=== PATIENT | male | born 1955 | race Hispanic/Latino ===

== ENCOUNTER 2020-12-05 13:28 | Emergency (ER) | payer OTHER ==
--- OUTSIDE RECORDS SUMMARY | 2020-12-05 13:31 | XMS REPORT | Continuity of Care Document ---
:1955 Author Organization [facility] t Address [address] [place] [address] Dr. [address] [place] [address] Care Team Providers Name Role Phone Only, Test Attending Clinician Unavailable Christine SIMON Attending Clinician Unavailable Problems This patient has no known problems. Allergies, Adverse Reactions, Alerts This patient has no known allergies or adverse reactions. Medications This patient has no known medications. Procedures This patient has no known procedures. Encounters Start End Encounter Admission Attending Care Care Encounter Source Date/Time Date/Time Type Type Clinicians Facility Department ID 2020-09-22 2020-09-22 Laboratory Only, [facility] [id number] 13:22:29 13:37:29 Only Test [place] [id number] [place] [id number] [place] [id number] 2020-03-17 2020-03-17 Outpatient ALFRED KANNAN [facility] [id number] Access 00:00:00 00:00:00 [facility] Results This patient has no known results.
[2020-12-05] MEDS ORDERED: HYDROCODONE/APAP 10/325 TAB ONE ×2 (14:05→14:09)
--- NOTE | 2020-12-05 14:45 | RAD REPORT ---
EXAM DESCRIPTION: CT - Thorax Wo Con - 12/05/2020 2:19 pm CLINICAL HISTORY: PAIN COMPARISON: No comparisons TECHNIQUE: Axial 5 mm thick images of the chest were obtained without IV contrast. All CT scans are performed using dose optimization technique as appropriate and may include automated exposure control or mA/KV adjustment according to patient size. FINDINGS: No mass or infiltrate in the lung parenchyma. No pleural thickening or pleural effusion. N o pneumothorax. No abnormal mediastinal or hilar masses or lymphadenopathy seen. No gross aortic or pulmonary artery finding suspected. Assessment is limited in the absence of IV contrast. No cardiomegaly or pericardi al effusion. No chest wall mass or abnormal axillary lymphadenopathy. The anterior aspect of the right seventh- ninth ribs are fractured near the costochondral junction. T his is the lateral aspect of the lower ribcage. Patient also has cortical buckling involving the thir d- sixth ribs very likely nondisplaced acute fractures as well. IMPRESSION: Definitive nondisplaced fractures of the lateral right seventh- ninth ribs near the cost ochondral junction. Patient very likely has buckle type or incomplete fractures of the anterior right third-sixth ribs. No pneumothorax, hemothorax, pulmonary contusion or other trauma related findings.
--- NOTE | 2020-12-05 15:09 | ER ---
Nurse's Notes [facility] Name: Bj Carpio Age: 65 yrs Sex: Male : 1955 Arrival Date: 12/05/2020 Time: 13:35 Bed 5 Private MD: Diagnosis: Fall on same level from slipping, tripping and stumbling;Multiple fractures of ribs, right side Presentation: 12/05 13:41 Chief complaint: Patient states: Trip and fall yesterday while hunting. R lateral rib ll1 cage pain since. Pain with deep breathing. No head injury or LOC. Coronavirus screen: Client denies travel out of the [place] in the last 14 days. At this time, the client does not indicate any symptoms associated with coronavirus-19. Ebola Screen: Patient denies travel to an Ebola-affected area in the 21 days before illness onset. Initial Sepsis Screen: Does the patient meet any 2 criteria? No. Patient's initial sepsis screen is negative. Does the patient have a suspected source of infection? Yes: Bone or joint infection. Risk Assessment: Do you want to hurt yourself or someone else? Patient reports no desire to harm self or others. Onset of symptoms was December 04, 2020. 13:41 Method Of Arrival: Ambulatory ll1 13:41 Acuity: MANUELA 4 ll1 Triage Assessment: 13:44 General: Appears uncomfortable, Behavior is calm, cooperative, appropriate for age. ll1 Pain: Complains of pain in R lateral rib cage Quality of pain is described as aching, Aggravated by increased activity. Neuro: No deficits noted. Cardiovascular: No deficits noted. Respiratory: Airway is patent Trachea midline Respiratory effort is even, unlabored, Respiratory pattern is regular, symmetrical, Breath sounds are clear bilaterally. Musculoskeletal: Circulation, motion, and sensation intact. Capillary refill < 3 seconds, Tenderness present in R lateral rib cage pain Reports pain in R lateral rib cage pain. Injury Description: fall. Historical: - Allergies: 13:39 No Known Allergies; ll1 - PMHx: 13:39 Hypertension; Diabetes - NIDDM; Diabetes - IDDM; High Cholesterol; ll1 - PSHx: 13:39 None; ll1 - Immunization history:: Flu vaccine is not up to date. - Social history:: Smoking status: Patient denies any tobacco usage or history of. Screenin:35 Abuse screen: Denies threats or abuse. Nutritional screening: No deficits noted. vg1 Tuberculosis screening: No symptoms or risk factors identified. Fall Risk Fall in past 12 months (25 points). No secondary diagnosis (0 pts). No IV (0 pts). Ambulatory Aid- None/Bed Rest/Nurse Assist (0 pts). Gait- Normal/Bed Rest/Wheelchair (0 pts) Mental Status- Oriented to own ability (0 pts). Total Domingo Fall Scale indicates Low Risk Score (25-44 pts). Fall prevention measures have been instituted. Side Rails Up X 2 Placed close to Nursing Station. Assessment: 14:33 General: Appears in no apparent distress. comfortable, Behavior is calm, cooperative. vg1 Pain: Complains of pain in Right lateral rib Pain currently is 9 out of 10 on a pain scale. Pain began 1 day ago. Alleviated by rest, Aggravated by deep breathing. Neuro: Level of Consciousness is awake, alert, obeys commands, Oriented to person, place, time, situation. Cardiovascular: Patient's skin is warm and dry. Respiratory: Reports shortness of breath pain with respiration Airway is patent Respiratory effort is even, unlabored, Respiratory pattern is regular, symmetrical, Breath sounds are clear bilaterally. GI: No signs and/or symptoms were reported involving the gastrointestinal system. : No signs and/or symptoms were reported regarding the genitourinary system. EENT: No signs and/or symptoms were reported regarding the EENT system. Derm: Skin is intact, is healthy with good turgor. Musculoskeletal: Circulation, motion, and sensation intact. Vital Signs: 13:41 BP 144 / 65; Pulse 89; Resp 17; Temp 97.6; Pulse Ox 98% ; Weight 113.4 kg; Height 6 ft. ll1 0 in. (182.88 cm); Pain 8/10; 14:34 BP 155 / 74; Pulse 80; Resp 18; Pulse Ox 99% on R/A; vg1 13:41 Body Mass Index 33.91 (113.40 kg, 182.88 cm) ll1 ED Course: 13:35 Patient arrived in ED. mr 13:38 Arm band placed on. ll1 13:42 Triage completed. ll1 13:46 [facility]-C [facility] kb 13:46 Alberto Spencer MD is Attending Physician. kb 14:21 CT Chest Wo Con In Process Unspecified. EDMS 14:26 Neris Wolf, RN is Primary Nurse. vg1 14:35 Patient has correct armband on for positive identification. Bed in low position. Call vg1 light in reach. Side rails up X2. 14:35 Patient maintains SpO2 saturation greater than 95% on room air. vg1 15:23 No provider procedures requiring assistance completed. Patient did not have IV access vg1 during this emergency room visit. Administered Medications: 13:52 Drug: [place] 10 mg-325 mg 1 tabs {Note: rass 0.} Route: PO; ll1 15:24 Follow up: Response: No adverse reaction; Pain is decreased vg1 Outcome: 15:09 Discharge ordered by . kb 15:24 Discharged to home ambulatory. vg1 15:24 Condition: stable 15:24 Discharge instructions given to patient, Instructed on discharge instructions, follow up and referral plans. medication usage, Demonstrated understanding of instructions, follow-up care, medications, Prescriptions given X 2. 15:24 Patient left the ED. vg1 Signatures: Dispatcher [employer] EDMS Maggie Potts, FACTORY MANAGER-C FACTORY MANAGER-Claudia Molly Clark Neris Wolf, RN RN vg1 Albert Kitchen, COREY RN ll1
--- NOTE | 2020-12-05 15:09 | EDPHYS ---
Physician Documentation [facility] Name: Bj Carpio Age: 65 yrs Sex: Male : 1955 Arrival Date: 12/05/2020 Time: 13:35 Bed 5 Private MD: ED Physician Alberto Spencer HPI: 12/05 15:07 This 65 yrs old Male presents to ER via Ambulatory with complaints of Fall kb Injury, Rib pain. 15:07 Details of fall: The patient fell from an upright position, while walking. The patient kb has not experienced similar symptoms in the past. The patient has not recently seen a physician. 15:08 Onset: The symptoms/episode began/occurred yesterday. Associated injuries: The patient kb sustained injury to the chest, specifically the right lateral anterior chest, pain with breathing, pain with movement, tenderness. Severity of symptoms: At their worst the symptoms were moderate, in the emergency department the symptoms are unchanged. Historical: - Allergies: 13:39 No Known Allergies; ll1 - PMHx: 13:39 Hypertension; Diabetes - NIDDM; Diabetes - IDDM; High Cholesterol; ll1 - PSHx: 13:39 None; ll1 - Immunization history:: Flu vaccine is not up to date. - Social history:: Smoking status: Patient denies any tobacco usage or history of. ROS: 15:07 Constitutional: Negative for fever, chills, and weight loss, Respiratory: Negative for kb shortness of breath, cough, wheezing, and pleuritic chest pain, Abdomen/GI: Negative for abdominal pain, nausea, vomiting, diarrhea, and constipation, MS/Extremity: Negative for injury and deformity, Skin: Negative for injury, rash, and discoloration, Neuro: Negative for headache, weakness, numbness, tingling, and seizure. 15:07 Cardiovascular: Positive for chest pain, with cough, with movement, of the right lateral anterior chest. Exam: 15:07 Constitutional: This is a well developed, well nourished patient who is awake, alert, kb and in no acute distress. Head/Face: Normocephalic, atraumatic. Cardiovascular: Regular rate and rhythm with a normal S1 and S2. No gallops, murmurs, or rubs. No pulse deficits. Respiratory: Lungs have equal breath sounds bilaterally, clear to auscultation. No rales, rhonchi or wheezes noted. No increased work of breathing, no retractions or nasal flaring. Skin: Warm, dry with normal turgor. Normal color with no rashes, no lesions, and no evidence of cellulitis. MS/ Extremity: Pulses equal, no cyanosis. Neurovascular intact. Full, normal range of motion. Neuro: Awake and alert, GCS 15, oriented to person, place, time, and situation. Cranial nerves II-XII grossly intact. Moves all extremities. Sensory grossly intact. Cerebellar exam normal. Normal gait. 15:07 Chest/axilla: Inspection: normal, Palpation: tenderness, that is moderate, of the right lateral anterior chest, that totally reproduces the patient's complaints. Vital Signs: 13:41 BP 144 / 65; Pulse 89; Resp 17; Temp 97.6; Pulse Ox 98% ; Weight 113.4 kg; Height 6 ft. ll1 0 in. (182.88 cm); Pain 8/10; 14:34 BP 155 / 74; Pulse 80; Resp 18; Pulse Ox 99% on R/A; vg1 13:41 Body Mass Index 33.91 (113.40 kg, 182.88 cm) ll1 MDM: 13:47 Patient medically screened. kb 15:06 Data reviewed: vital signs, nurses notes. Data interpreted: Pulse oximetry: on room air kb is 99 %. Interpretation: normal. Counseling: I had a detailed discussion with the patient and/or guardian regarding: the historical points, exam findings, and any diagnostic results supporting the discharge/admit diagnosis, radiology results, the need for outpatient follow up, a family practitioner, to return to the emergency department if symptoms worsen or persist or if there are any questions or concerns that arise at home. 12/05 13:46 Order name: CT Chest Wo Con; Complete Time: 15:01 kb 12/05 15:06 Order name: INCENTIVE SPIROMETRY kb Administered Medications: 13:52 Drug: [place] 10 mg-325 mg 1 tabs {Note: rass 0.} Route: PO; ll1 15:24 Follow up: Response: No adverse reaction; Pain is decreased vg1 Disposition: 12/06 07:01 Co-signature as Attending Physician, Alberto Spencer MD I agree with the assessment and alpa plan of care. Disposition: 12/05/20 15:09 Discharged to Home. Impression: Fall on same level from slipping, tripping and stumbling, Multiple fractures of ribs, right side. - Condition is Stable. - Discharge Instructions: Rib Fracture, [id number]. - Prescriptions for Tylenol- Codeine #3 300-30 mg Oral Tablet - take 2 tablets by ORAL route every 4-6 hours As needed; 16 tablet. Cyclobenzaprine 10 mg Oral Tablet - take 1 tablet by ORAL route every 8 hours As needed; 21 tablet. - Medication Reconciliation Form, Thank You Letter, Antibiotic Education, Prescription Opioid Use form. - Follow up: Emergency Department; When: As needed; Reason: Worsening of condition. Follow up: Private Physician; When: 2 - 3 days; Reason: Recheck today's complaints, Continuance of care, Re-evaluation by your physician. Signatures: Dispatcher [employer] EDMaggie Sierra, INTEGRATION LEAD-C INTEGRATION LEAD-Alberto Lynn MD MD cha Garcia, Victoria RN RN vg1 Albert Kitchen RN RN ll1 Corrections: (The following items were deleted from the chart) 12/05 15:24 15:09 12/05/2020 15:09 Discharged to Home. Impression: Fall on same level from vg1 slipping, tripping and stumbling; Multiple fractures of ribs, right side. Condition is Stable. Forms are Medication Reconciliation Form, Thank You Letter, Antibiotic Education, Prescription Opioid Use. Follow up: Emergency Department; When: As needed; Reason: Worsening of condition. Follow up: Private Physician; When: 2 - 3 days; Reason: Recheck today's complaints, Continuance of care, Re-evaluation by your physician. kb
[2020-12-06 12:55] VITALS: TEMP 97.6
[2020-12-06 12:56] VITALS: BP 155/74; O2SAT 99
== END 2020-12-05 15:24 | disposition home or self-care (01) ==
LOC: ER 13:28
DX: S22.41XA Multiple fractures of ribs, right side, initial encounter for closed fracture (principal); W01.0XXA Fall on same level from slipping, tripping and stumbling without subsequent striking against object, initial encounter; Y93.01 Activity, walking, marching and hiking; Y92.9 Unspecified place or not applicable; I10 Essential (primary) hypertension
CPT/HCPCS: 71250; 99284

== ENCOUNTER 2021-07-18 01:16 | Inpatient (IN) | payer OTHER ==
[2021-07-18 02:01] LABS: Absolute Lymphocytes (CBC) 1.2 K/uL (0.7-4.9); Basophils % 0.7 % (0-1.3); Hematocrit 39.3 % (39.6-49.0); Lymphocytes % 13.6 % (15.3-44.8); MPV 10.4 fL (7.6-11.3)
[2021-07-18] MEDS ORDERED: MORPHINE 2 MG/ML SYR ONE (02:13)
[2021-07-18] MEDS ORDERED: ONDANSETRON 4 MG/2 ML VIAL ONE ×2 (02:14→17:13)
[2021-07-18] MEDS ORDERED: NA CHLORIDE 0.9% 500 ML ONE ×2 (02:14→03:07)
[2021-07-18 02:24] LABS: Albumin 2.9 g/dL (3.4-5.0); Bilirubin Direct 0.1 mg/dL (0-0.2); Bilirubin Total 0.4 mg/dL (0.2-1.0); Potassium 4.3 mmol/L (3.5-5.1); Protein, Total 6.8 g/dL (6.4-8.2)
[2021-07-18] MEDS ORDERED: HYDROMORPHONE HCL 0.5 MG/0.5 ML INJ ONE (03:22)
[2021-07-18 03:24] LABS: Urine Blood 1+ (Negative); Urine Glucose 2+ (Negative); Urine Protein 3+ (Negative)
[2021-07-18 04:21] LABS: Urine Bacteria <20 /HPF (NONE SEEN); Urine RBC <5 /HPF (NONE SEEN)
[2021-07-18] MEDS ORDERED: DIPHENHYDRAMINE 50 MG/ML VIAL ONE (04:24)
--- NOTE | 2021-07-18 04:44 | ER ---
Nurse's Notes [facility] Name: Bj Carpio Age: 66 yrs Sex: Male : 1955 Arrival Date: 07/18/2021 Time: 01:19 Bed 5 Private MD: Diagnosis: Cholelithiasis, Pancreatitis, Intractable pain Presentation: 07/18 01:35 Chief complaint: Patient states: patient presents to the ED c/o RUQ abdominal pain ms4 onset 0. patient denies N/V/D. 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 Coronavirus screen: Vaccine status: Patient reports receiving the 2nd dose of the covid vaccine. At this time, the client does not indicate any symptoms associated with coronavirus-19. Ebola Screen: Patient negative for fever greater than or equal to 101.5 degrees Fahrenheit, and additional compatible Ebola Virus Disease symptoms Patient denies exposure to infectious person. Patient denies travel to an Ebola-affected area in the 21 days before illness onset. No symptoms or risks identified at this time. Initial Sepsis Screen: Does the patient meet any 2 criteria? No. Patient's initial sepsis screen is negative. Does the patient have a suspected source of infection? No. Patient's initial sepsis screen is negative. Risk Assessment: Do you want to hurt yourself or someone else? Patient reports no desire to harm self or others. Onset of symptoms was July 17, 2021 at 22:30. 01:35 Method Of Arrival: Ambulatory ms4 01:35 Acuity: MANUELA 3 ms4 Triage Assessment: 01:41 General: Appears in no apparent distress. Behavior is calm, cooperative, appropriate ms4 for age. Pain: Complains of pain in abdomen RUQ Pain does not radiate. Pain currently is 9 out of 10 on a pain scale. Quality of pain is described as sharp. Cardiovascular: No deficits noted. Respiratory: No deficits noted. GI: Reports upper abdominal pain, gaseousness. Historical: - Allergies: 01:37 No Known Allergies; ms4 - Home Meds: 01:38 glimepiride 4 mg Oral tab 2 tabs once daily [Active]; labetalol 100 mg Oral tab 1 tab 2 ms4 times per day [Active]; Fish Oil 1,000 mg (120 mg-180 mg) oral cap four times a day [Active]; metformin 1,000 mg Oral tab 1 tab 2 times per day [Active]; atorvastatin 20 mg oral tab 1 tab once daily [Active]; Humalog U-100 Insulin 100 unit/mL Sub-Q crtg 5 units three times a day [Active]; - PMHx: 01:37 Diabetes - IDDM; Diabetes - NIDDM; High Cholesterol; Hypertension; ms4 - Immunization history:: Adult Immunizations up to date, Client reports receiving the 2nd dose of the Covid vaccine, Last tetanus immunization: up to date. - Social history:: Smoking status: unknown. Screenin:42 Abuse screen: Denies threats or abuse. Denies injuries from another. Nutritional ms4 screening: No deficits noted. Tuberculosis screening: No symptoms or risk factors identified. Fall Risk None identified. Assessment: 02:36 General: Appears in no apparent distress. Behavior is calm, cooperative, appropriate lp1 for age. Pain: Complains of pain in abdomen Pain does not radiate. Quality of pain is described as sharp. Neuro: No deficits noted. Cardiovascular: No deficits noted. Respiratory: No deficits noted. GI: Reports upper abdominal pain, gaseousness. 05:46 Reassessment: report given to christy vargas. patient transported to [facility]. ms4 Vital Signs: 01:35 BP 204 / 97; Pulse 97; Resp 20; Temp 98.3(O); Pulse Ox 95% on R/A; Weight 113.4 kg; ms4 Height 6 ft. 0 in. (182.88 cm); Pain 9/10; 02:32 BP 178 / 81; Pulse 87; Resp 18; Pulse Ox 96% on R/A; lp1 03:31 Pain 5/10; ms4 04:13 BP 198 / 89; Pulse 80; Resp 18; Pulse Ox 96% on R/A; Pain 9/10; ms4 05:15 BP 169 / 81; Pulse 79; Resp 16; Pulse Ox 96% on R/A; Pain 0/10; ms4 01:35 Body Mass Index 33.91 (113.40 kg, 182.88 cm) ms4 ED Course: 01:19 Patient arrived in ED. 01:28 Lance Campos MD is Attending Physician. mh7 01:37 Triage completed. ms4 01:42 Arm band placed on right wrist. ms4 01:42 No provider procedures requiring assistance completed. ms4 01:45 Inserted saline lock: 20 gauge in right antecubital area, using aseptic technique. lp1 Blood collected. 02:02 US Abdomen Limited Sent. ms4 02:09 US Abdomen Limited In Process Unspecified. EDMS 03:00 CT Abd/Pelvis - IV Contrast Only Sent. ms4 03:23 CT Abd/Pelvis - IV Contrast Only In Process Unspecified. EDMS 03:31 Patient has correct armband on for positive identification. ms4 04:42 Ankush Montgomery DO is Hospitalizing Provider. mh7 04:43 COVID-19/FLU A+B/RSV (Document "Date of Onset" if Symptomatic) Sent. ms4 Administered Medications: 02:01 Drug: morphine 4 mg Route: IVP; Site: right antecubital; ms4 02:01 Drug: Zofran (Ondansetron) 4 mg Route: IVP; Site: right antecubital; ms4 02:01 Drug: NS 0.9% 500 ml Route: IV; Rate: bolus; Site: right antecubital; ms4 02:51 Drug: NS 0.9% 500 ml Route: IV; Rate: bolus; Site: right antecubital; lp1 03:00 Drug: Dilaudid (HYDROmorphone) 0.5 mg Route: IVP; Site: right antecubital; ms4 04:43 Drug: Dilaudid (HYDROmorphone) 1 mg Route: IVP; Site: right antecubital; ms4 05:15 Drug: Mefoxin (cefOXitin) 1 grams Route: IVPB; Infused Over: 30 mins; Site: right ms4 antecubital; Outcome: 04:43 Decision to Hospitalize by Provider. mh7 05:46 Patient left the ED. ms4 Signatures: Dispatcher [employer] EDMS Chio Eller RN RN lp1 Lance Campos MD MD 7 Brandee Ken Mikaela, RN RN ms4
--- NOTE | 2021-07-18 04:44 | EDPHYS ---
Physician Documentation [facility] Name: Bj Carpio Age: 66 yrs Sex: Male : 1955 Arrival Date: 07/18/2021 Time: 01:19 Bed 5 Private MD: ED Physician Lance Campos HPI: 07/18 01:39 This 66 yrs old Male presents to ER via Ambulatory with complaints of Side mh7 Pain. 01:39 The patient presents with abdominal pain in the right upper quadrant. Onset: The mh7 symptoms/episode began/occurred last night, at 22:30. The symptoms do not radiate. Associated signs and symptoms: Pertinent negatives: nausea, vomiting, and diarrhea, anorexia, blood in stools, chest pain, constipation, diarrhea, dysuria, fever, headache, hematuria, nausea, palpitations, shortness of breath, testicular pain, vomiting, vomiting blood. The symptoms are described as intermittent, vague, waxing/waning. Modifying factors: The symptoms are alleviated by nothing, the symptoms are aggravated by nothing. Severity of pain: At its worst the pain was moderate last night, in the emergency department the pain is unchanged despite home interventions. Historical: - Allergies: 01:37 No Known Allergies; ms4 - Home Meds: 01:38 glimepiride 4 mg Oral tab 2 tabs once daily [Active]; labetalol 100 mg Oral tab 1 tab 2 ms4 times per day [Active]; Fish Oil 1,000 mg (120 mg-180 mg) oral cap four times a day [Active]; metformin 1,000 mg Oral tab 1 tab 2 times per day [Active]; atorvastatin 20 mg oral tab 1 tab once daily [Active]; Humalog U-100 Insulin 100 unit/mL Sub-Q crtg 5 units three times a day [Active]; - PMHx: 01:37 Diabetes - IDDM; Diabetes - NIDDM; High Cholesterol; Hypertension; ms4 - Immunization history:: Adult Immunizations up to date, Client reports receiving the 2nd dose of the Covid vaccine, Last tetanus immunization: up to date. - Social history:: Smoking status: unknown. ROS: 01:39 Constitutional: Negative for fever, chills, and weight loss, Eyes: Negative for injury, mh7 pain, redness, and discharge, ENT: Negative for injury, pain, and discharge, Neck: Negative for injury, pain, and swelling, Cardiovascular: Negative for chest pain, palpitations, and edema, Respiratory: Negative for shortness of breath, cough, wheezing, and pleuritic chest pain, Back: Negative for injury and pain, : Negative for injury, bleeding, discharge, and swelling, MS/Extremity: Negative for injury and deformity, Skin: Negative for injury, rash, and discoloration, Neuro: Negative for headache, weakness, numbness, tingling, and seizure, Psych: Negative for depression, anxiety, suicide ideation, homicidal ideation, and hallucinations, Allergy/Immunology: Negative for hives, rash, and allergies, Endocrine: Negative for neck swelling, polydipsia, polyuria, polyphagia, and marked weight changes, Hematologic/Lymphatic: Negative for swollen nodes, abnormal bleeding, and unusual bruising. Exam: 01:39 Head/Face: Normocephalic, atraumatic. Eyes: Pupils equal round and reactive to light, mh7 extra-ocular motions intact. Lids and lashes normal. Conjunctiva and sclera are non-icteric and not injected. Cornea within normal limits. Periorbital areas with no swelling, redness, or edema. Neck: Trachea midline, no thyromegaly or masses palpated, and no cervical lymphadenopathy. Supple, full range of motion without nuchal rigidity, or vertebral point tenderness. No Meningismus. Chest/axilla: Normal chest wall appearance and motion. Nontender with no deformity. No lesions are appreciated. Cardiovascular: Regular rate and rhythm with a normal S1 and S2. No gallops, murmurs, or rubs. Normal PMI, no JVD. No pulse deficits. Respiratory: Lungs have equal breath sounds bilaterally, clear to auscultation and percussion. No rales, rhonchi or wheezes noted. No increased work of breathing, no retractions or nasal flaring. 01:39 Back: No spinal tenderness. No costovertebral tenderness. Full range of motion. Skin: Warm, dry with normal turgor. Normal color with no rashes, no lesions, and no evidence of cellulitis. MS/ Extremity: Pulses equal, no cyanosis. Neurovascular intact. Full, normal range of motion. Neuro: Awake and alert, GCS 15, oriented to person, place, time, and situation. Cranial nerves II-XII grossly intact. Motor strength 5/5 in all extremities. Sensory grossly intact. Cerebellar exam normal. Normal gait. Psych: Awake, alert, with orientation to person, place and time. Behavior, mood, and affect are within normal limits. 01:39 Constitutional: The patient appears in no acute distress, alert, awake, uncomfortable. 01:39 Abdomen/GI: Inspection: obese Bowel sounds: normal, in all quadrants, Palpation: mh7 moderate abdominal tenderness, in the epigastric area and right upper quadrant, mass, is not appreciated, rebound tenderness, is not appreciated, voluntary guarding, is not appreciated, involuntary guarding, is not appreciated, no appreciated organomegaly, Rectal exam: the exam is deferred, because of patient request, Indicators: McBurney's point is not tender, Johnson's sign is positive, Rovsing's sign is negative, Obturator sign is negative, Psoas sign is negative, Liver: no appreciated palpable abnormalities, Hernia: not appreciated. Vital Signs: 01:35 BP 204 / 97; Pulse 97; Resp 20; Temp 98.3(O); Pulse Ox 95% on R/A; Weight 113.4 kg; ms4 Height 6 ft. 0 in. (182.88 cm); Pain 9/10; 02:32 BP 178 / 81; Pulse 87; Resp 18; Pulse Ox 96% on R/A; lp1 03:31 Pain 5/10; ms4 04:13 BP 198 / 89; Pulse 80; Resp 18; Pulse Ox 96% on R/A; Pain 9/10; ms4 05:15 BP 169 / 81; Pulse 79; Resp 16; Pulse Ox 96% on R/A; Pain 0/10; ms4 01:35 Body Mass Index 33.91 (113.40 kg, 182.88 cm) ms4 MDM: 04:38 Differential diagnosis: bowel obstruction, cholecystitis, Cholelithiasis, mh7 diverticulitis, gastritis, gastroesophageal reflux disease, non-specific abd pain, pancreatitis, Peptic Ulcer Disease, Ureterolithiasis, urinary tract infection. Data reviewed: vital signs, nurses notes, lab test result(s), CBC, electrolytes, urinalysis, EKG, radiologic studies, CT scan, ultrasound. Data interpreted: Pulse oximetry: on room air is 96 %. Interpretation: normal. Counseling: I had a detailed discussion with the patient and/or guardian regarding: the historical points, exam findings, and any diagnostic results supporting the discharge/admit diagnosis, the presence of at least one elevated blood pressure reading (>120/80) during this emergency department visit, lab results, radiology results, the need for further work-up and treatment in the hospital. Response to treatment: the patient's symptoms have mildly improved after treatment. Physician consultation: Reed Tejada MD was contacted at 04:25, regarding patient's condition, and will see patient in inpatient room, would like admission per Dr. Ankush Montgomery DO. 04:[address] [facility] 07/18 01:37 Order name: Basic Metabolic Panel; Complete Time: 02: [facility] 07/18 01:37 Order name: CBC with Diff; Complete Time: 02: [facility] 07/18 01:37 Order name: Hepatic Function; Complete Time: 02:29 [facility] 07/18 01:37 Order name: Lipase; Complete Time: 02: [facility] 07/18 03:23 Order name: Urine Dipstick-Ancillary; Complete Time: 03:28 [facility] 07/18 04:12 Order name: Urine Microscopic Only; Complete Time: 04:22 [facility] 07/18 01:38 Order name: US Abdomen Limited [facility] 07/18 02:31 Order name: CT Abd/Pelvis - IV Contrast Only [facility] 07/18 04:12 Order name: Urine Culture [facility] 07/18 04:31 Order name: COVID-19/FLU A+B/RSV (Document "Date of Onset" if Symptomatic) [facility] 07/18 01:37 Order name: IV Saline Lock; Complete Time: 01:46 [facility] 07/18 01:37 Order name: Labs collected and sent; Complete Time: 01:46 [facility] 07/18 01:37 Order name: Urine Dipstick-Ancillary (obtain specimen); Complete Time: 03:24 [facility] 07/18 01:37 Order name: EKG; Complete Time: 01:38 [facility] 07/18 01:37 Order name: EKG - Nurse/Tech; Complete Time: 02:02 [facility] 07/18 04:43 Order name: CONS Physician Consult EDMS Administered Medications: 02:01 Drug: morphine 4 mg Route: IVP; Site: right antecubital; ms4 02:01 Drug: Zofran (Ondansetron) 4 mg Route: IVP; Site: right antecubital; ms4 02:01 Drug: NS 0.9% 500 ml Route: IV; Rate: bolus; Site: right antecubital; ms4 02:51 Drug: NS 0.9% 500 ml Route: IV; Rate: bolus; Site: right antecubital; lp1 03:00 Drug: Dilaudid (HYDROmorphone) 0.5 mg Route: IVP; Site: right antecubital; ms4 04:43 Drug: Dilaudid (HYDROmorphone) 1 mg Route: IVP; Site: right antecubital; ms4 05:15 Drug: Mefoxin (cefOXitin) 1 grams Route: IVPB; Infused Over: 30 mins; Site: right ms4 antecubital; Disposition Summary: 07/18/21 04:43 Hospitalization Ordered Hospitalization Status: Inpatient Admission [facility] Provider: Ankush Montgomery [facility] Location: Telemetry/MedSurg (Inpatient) [facility] Condition: Stable [facility] Problem: new [facility] Symptoms: have improved [facility] Bed/Room Type: Standard [facility] Room Assignment: 219(07/18/21 05:29) Diagnosis - Cholelithiasis, Pancreatitis, Intractable pain [facility] Forms: - Medication Reconciliation Form [facility] - SBAR form [facility] Signatures: Dispatcher [employer] Celia Nunes RN RN Chio Eller RN RN lp1 Lance Campos MD MD 7 Dorcas Emerson RN RN ms4 Corrections: (The following items were deleted from the chart) 05:29 04:43 [facility]
[2021-07-18] MEDS ORDERED: HYDROMORPHONE HCL 1 MG/ML INJ ONE (05:02)
--- NOTE | 2021-07-18 05:22 | P.HP ---
Certification for Inpatient Patient admitted to: Inpatient With expected LOS: <2 Midnights Patient will require the following post-hospital care: None Practitioner: I am a practitioner with admitting privileges, knowledge of patient current condition, hospital course, and medical plan of care. Services: Services provided to patient in accordance with Admission requirements found in Title 42 Section 412.3 of the Code of Federal Regulations Patient History Date of Service: 07/18/21 Primary Care Provider: Tima Reason for admission: gallstone pancreatitis History of Present Illness: Mr. Carpio is a 66 yo M with DM, HTN, HLD who presents with 10/10 RUQ abdominal pain beginning last night. He denies nausea and vomiting. CT shows distended gallbladder with associated cholelithiasis and bilateral nonspecific perinephric stranding possibly secondary to nonspecific infectious process. Ultrasound shows cholelithiasis without cholecystitis. Plt 122 Lipase 750 Glu 307 BUN 32 GFR 61. Given IV fluids and levaquin in the ED. - Past Medical/Surgical History -: HTN -: HLD -: DM -: leg surgery -: hernia repair Psychosocial/ Personal History: - Family History Family History: Reviewed- Non-Contributory - Social History Smoking Status: Never smoker Alcohol use: Yes CD- Drugs: No Caffeine use: Yes Place of Residence: Home Review of Systems 10-point ROS is otherwise unremarkable Gastrointestinal: Abdominal Pain Physical Examination - Physical Exam General: Alert, In no apparent distress HEENT: Atraumatic, PERRLA, Mucous membr. moist/pink, EOMI, Sclerae nonicteric Neck: Supple, 2+ carotid pulse no bruit, No LAD, Without JVD or thyroid abnormality Respiratory: Clear to auscultation bilaterally, Normal air movement Cardiovascular: Regular rate/rhythm, Normal S1 S2 Gastrointestinal: Normal bowel sounds, Soft and benign, Non-distended, Tenderness Musculoskeletal: No tenderness Integumentary: No rashes Neurological: Normal speech, Normal strength at 5/5 x4 extr, Normal tone, Normal affect Lymphatics: No axilla or inguinal lymphadenopathy - Studies Laboratory Data (last 24 hrs) 07/18/21 01:45: WBC 8.90, Hgb 12.8 L, Hct 39.3 L, Plt Count 122 L 07/18/21 01:45: Sodium 140, Potassium 4.3, BUN 32 H, Creatinine 1.19, Glucose 307 H, Total Bilirubin 0.4, AST 18, ALT 30, Alkaline Phosphatase 74, Lipase 750 H Assessment and Plan - Problems (Diagnosis) (1) HTN (hypertension) Current Visit: Yes Status: Chronic Qualifiers: Hypertension type: primary hypertension Qualified Code(s): I10 - Essential (primary) hypertension (2) HLD (hyperlipidemia) Current Visit: Yes Status: Chronic Qualifiers: Hyperlipidemia type: unspecified Qualified Code(s): E78.5 - Hyperlipidemia, unspecified (3) T2DM (type 2 diabetes mellitus) Current Visit: Yes Status: Chronic Qualifiers: Diabetes mellitus [employer] insulin use: unspecified [employer] insulin use status Diabetes mellitus complication status: without complication Qualified Code(s): E11.9 - Type 2 diabetes mellitus without complications (4) Gallstone pancreatitis Current Visit: Yes Status: Acute - Plan surgery consulted, MRCP in the AM NPO, IVF hydration and IV antibiotics trend amylase and lipase, lipid profile pending antiemetics and pain management as needed sliding scale insulin and q6hr checks, A1c pending hydralazine PRN for BP spikes DVT ppx Discharge Plan: Home Plan to discharge in: 48 Hours - Advance Directives Does patient have a Living Will: No Does patient have a Durable POA for Healthcare: No - Code Status/Comfort Care Code Status Assessed: Yes (full code ) Critical Care: No Time Spent Managing Pts Care (In Minutes): 70
[2021-07-18 05:23] LABS: SARS-COV-2 RT PCR NEGATIVE (NEGATIVE)
[2021-07-18] MEDS ORDERED: CEFOXITIN SODIUM 1 GM/VIAL ONE (05:24)
[2021-07-18] MEDS ORDERED: NA CHLORIDE 0.9% 50 ML ONE (05:24)
[2021-07-18 06:00] VITALS: BMI 33.9
[2021-07-18] MEDS ORDERED: ONDANSETRON 4 MG/2 ML VIAL IV PRN (06:00)
[2021-07-18] MEDS ORDERED: HYDRALAZINE HCL 20 MG/ML VIAL IV PRN (06:00)
[2021-07-18] MEDS: NA CHLORIDE 0.9% 1,000 ML IV SCH ×3 (06:21→22:30)
[2021-07-18] MEDS ORDERED: INSULIN -REGULAR HUMAN 50 UNIT/0.5 ML ML SQ SCH (07:30)
[2021-07-18] MEDS: HYDROMORPHONE HCL 0.5 MG/0.5 ML INJ IV PRN ×3 (08:28→22:32)
--- NOTE | 2021-07-18 10:18 | RAD REPORT ---
EXAM DESCRIPTION: US Abdomen Limited, Gallbladder CLINICAL HISTORY: The patient is 66 years old and is Male; RUQ;Abd pain TECHNIQUE: Real-time ultrasound of the right upper quadrant with image documentation. COMPARISON: No relevant prior studies available. FINDINGS: GALLBLADDER: The gallbladder is distended. A few gallstones are noted near the neck of t he gallbladder. There is no gallbladder wall thickening or pericholecystic fluid. COMMON BILE DUCT: Unremarkable as visualized. No stones. No dilation. IMPRESSION: Cholelithiasis without findings to suggest cholecystitis. Electronically signed by: Josiane Gamez MD 07/18/2021 3:03 AM CDT Due to temporary technical issues with the PACS/Fluency reporting system, reports are being signed by the in house radiologist without review as a courtesy to ensure prompt reporting. The interpreting r adiologist is fully responsible for the content of the report.
--- NOTE | 2021-07-18 10:19 | RAD REPORT ---
EXAM DESCRIPTION: CT Abdomen and Pelvis With Intravenous Contrast EXAM DATE/TIME: July 19, 2021 at 0308 hours CLINICAL HISTORY: The patient is 66 years old and is Male; ABD PAIN TECHNIQUE: Axial computed tomography images of the abdomen and pelvis with intravenous contrast. S agittal and coronal reformatted images were created and reviewed. This CT exam was performed using one or more of the following dose reduction techniques: automated exposure control, adjustment of t he mA and/or kV according to patient size, and/or use of iterative reconstruction technique. COMPARISON: Ultrasound performed the same day FINDINGS: LUNG BASES: Minimal dependent densities in the lung bases are present. ABDOMEN: LIVER: The liver is enlarged and slightly heterogeneous. GALLBLADDER AND BILE DUCTS: Gallbladder is distended. Punctate gallstones are noted near the nec k of the gallbladder. PANCREAS: No ductal dilation. No mass. SPLEEN: Unremarkable. ADRENALS: Unremarkable. No mass. KIDNEYS AND URETERS: Nonspecific bilateral perinephric fluid and stranding is present. There is no hydronephrosis or hydroureter of either kidney. Bilateral renal cysts are present, the largest is on the left. Left intrarenal calcification is present. STOMACH AND BOWEL: The stomach is distended with fluid and air. The small bowel is relatively no rmal in caliber. Stool is present throughout colon. There is no mucosal thickening or evidence of bow el obstruction. PELVIS: APPENDIX: The appendix is normal in caliber without surrounding inflammation. BLADDER: The bladder is significantly distended. REPRODUCTIVE: Unremarkable as visualized. ABDOMEN and PELVIS: INTRAPERITONEAL SPACE: Unremarkable. No free air. No significant fluid collection. BONES/JOINTS: Multilevel degenerative change of the spine is present. SOFT TISSUES: The soft tissues are normal. VASCULATURE: Atherosclerosis of the vasculature is present. No abdominal aortic aneurysm. LYMPH NODES: Unremarkable. No enlarged lymph nodes. IMPRESSION: 1. Bilateral nonspecific perinephric stranding. No obstructing calculus or hydronephro sis of either kidney. Findings could be secondary to nonspecific infectious process. 2. Distended gallbladder with associated cholelithiasis as seen on prior ultrasound. Electronically signed by: Josiane Gamez MD 07/18/2021 4:04 AM CDT Due to temporary technical issues with the PACS/Fluency reporting system, reports are being signed by the in house radiologist without review as a courtesy to ensure prompt reporting. The interpreting r adiologist is fully responsible for the content of the report.
--- NOTE | 2021-07-18 10:34 | RAD REPORT ---
EXAM DESCRIPTION: MRI - Cholangiogram - 07/18/2021 10:17 am CLINICAL HISTORY: gallstone pancreatitis Right upper quadrant abdominal pain COMPARISON: Abdomen Pelvis W Contrast dated 07/18/2021; Abdomen Exam Limited dated 07/18/2021 FINDINGS: Three-dimensional MRCP was performed using maximum intensity projection reconstruction on the same work station. No intrahepatic biliary tree dilatation is seen. The common bile duct is normal caliber without evide nce of retained stone, stricture or mass. The pancreatic duct is not pathologically dilated. Mild distention of the gallbladder noted. Small amount of free fluid is seen in the upper abdomen. IMPRESSION: Negative MR cholangiogram.
[2021-07-18] MEDS: INSULIN -REGULAR HUMAN 50 UNIT/0.5 ML ML SQ SCH ×2 (12:00→17:15)
--- NOTE | 2021-07-18 12:49 | P.CNS ---
Date of Consult: 07/18/21 PC: I was asked to see this 66-year-old male in regards to his right upper quadrant abdominal pain and gallstones and gallstone pancreatitis. HPC: Patient was at home, began experience severe right upper quadrant abdominal pain, radiating into his back. It was worst pain he ever had. Said it never had any episodes like this before. Got to the emergency room and the pain eased slightly after he received some IV medication. PSHx: Negative PMHx: Diabetic, hypertension Social Hx: No known allergies Sys R: No cough, wheeze, shortness of breath. No chest pain or palpitations. No urinary complaints. O/E: Awake alert vital signs are stable HEENT: Not clinically jaundiced Chest: Air entry equal bilaterally Abd: Mild right upper quadrant tenderness, no guarding or rebound [place]: Intact Data: Normal white cell count count, ultrasound and CT scan demonstrate cholecystitis with cholelithiasis. MRCP was done this morning that was negative. Impression: Acute on chronic cholecystitis with cholelithiasis, possible choledocholithiasis Plan: Taken to the operating room for laparoscopic possible open cholecystectomy with a cholangiogram. The risks of this procedure have been discussed. The possibility of bleeding, infection, injury to bile ducts blood vessels and intestines has been described. The possible need for an open and or further surgeries or procedures was discussed. He understands and wishes to proceed.
--- NOTE | 2021-07-18 12:59 | P.PN ---
Subjective Date of Service: 07/18/21 Primary Care Provider: Tima Chief Complaint: gallstone pancreatitis Subjective: Other (Pain better controlled.) Physical Examination - Vital Signs Temperature: 97.2 F Blood Pressure: 164/83 Pulse: 82 Respirations: 15 Pulse Ox (%): 90 - Studies Laboratory Data (last 24 hrs) 07/18/21 01:45: WBC 8.90, Hgb 12.8 L, Hct 39.3 L, Plt Count 122 L 07/18/21 01:45: Sodium 140, Potassium 4.3, BUN 32 H, Creatinine 1.19, Glucose 307 H, Total Bilirubin 0.4, AST 18, ALT 30, Alkaline Phosphatase 74, Lipase 750 H Assessment & Plan Discharge Plan: Home Plan to discharge in: 48 Hours Physician Review Additional Text: COVID: Negative ABUS: COMPARISON: No relevant prior studies available. FINDINGS: GALLBLADDER: The gallbladder is distended. A few gallstones are noted near the neck of the gallbladder. There is no gallbladder wall thickening or pericholecystic fluid. COMMON BILE DUCT: Unremarkable as visualized. No stones. No dilation. IMPRESSION: Cholelithiasis without findings to suggest cholecystitis. CT scan Ab/Pelvis: COMPARISON: Ultrasound performed the same day FINDINGS: LUNG BASES: Minimal dependent densities in the lung bases are present. ABDOMEN: LIVER: The liver is enlarged and slightly heterogeneous. GALLBLADDER AND BILE DUCTS: Gallbladder is distended. Punctate gallstones are noted near the neck of the gallbladder. PANCREAS: No ductal dilation. No mass. SPLEEN: Unremarkable. ADRENALS: Unremarkable. No mass. KIDNEYS AND URETERS: Nonspecific bilateral perinephric fluid and stranding is present. There is no hydronephrosis or hydroureter of either kidney. Bilateral renal cysts are present, the largest is on the left. Left intrarenal calcification is present. STOMACH AND BOWEL: The stomach is distended with fluid and air. The small bowel is relatively normal in caliber. Stool is present throughout colon. There is no mucosal thickening or evidence of bowel obstruction. PELVIS: APPENDIX: The appendix is normal in caliber without surrounding inflammation. BLADDER: The bladder is significantly distended. REPRODUCTIVE: Unremarkable as visualized. ABDOMEN and PELVIS: INTRAPERITONEAL SPACE: Unremarkable. No free air. No significant fluid collection. BONES/JOINTS: Multilevel degenerative change of the spine is present. SOFT TISSUES: The soft tissues are normal. VASCULATURE: Atherosclerosis of the vasculature is present. No abdominal aortic aneurysm. LYMPH NODES: Unremarkable. No enlarged lymph nodes. IMPRESSION: 1. Bilateral nonspecific perinephric stranding. No obstructing calculus or hydronephrosis of either kidney. Findings could be secondary to nonspecific infectious process. 2. Distended gallbladder with associated cholelithiasis as seen on prior ultrasound. MRCP: COMPARISON: Abdomen Pelvis W Contrast dated 07/18/2021; Abdomen Exam Limited dated 07/18/2021 FINDINGS: Three-dimensional MRCP was performed using maximum intensity projection reconstruction on the same work station. No intrahepatic biliary tree dilatation is seen. The common bile duct is normal caliber without evidence of retained stone, stricture or mass. The pancreatic duct is not pathologically dilated. Mild distention of the gallbladder noted. Small amount of free fluid is seen in the upper abdomen. IMPRESSION: Negative MR cholangiogram. Physical Exam: GENERAL: The patient is a well-developed, well-nourished, in no apparent distress. Alert and oriented x3. VITAL SIGNS: Reviewed HEENT: Neck supple LUNGS: Clear to auscultation. No crackles or wheezes are heard. HEART: Regular rate and rhythm, no appreciable gallops, rubs, murmurs or extra heart sounds ABDOMEN: Pain to the right upper quadrant appears stable. EXTREMITIES: Without any cyanosis, clubbing, rash, lesions or peripheral edema. NEUROLOGIC: The patient is oriented to person, place and time. Strength and sensation are grossly intact. Face is symmetric. SKIN: Normal color, turgor and temperature. No ulcerations or rashes noted. Impression: Abdominal pain secondary to acute on chronic cholecystitis with cholelithiasis with mild pancreatitis Hypertension Diabetes mellitus type 2 Hyperlipidemia Obesity, BMI 33.9 Plan: Abdominal pain secondary to acute on chronic cholecystitis with cholelithiasis with mild pancreatitis: MRCP negative. No evidence of choledocholithiasis. Case discussed in detail with surgery. Surgery plans to take the patient to the OR for laparoscopic cholecystectomy with an operative cholangiogram. Patient medically stable for surgery. Patient is aware of plan and agrees with surgery. Hypertension: Continue with IV medication as needed, will transition to oral medication once able to take oral intake. Diabetes mellitus type 2: Continue Accu-Cheks and sliding scale. Hyperlipidemia: Will restart home medication once taking oral intake. Obesity, BMI 33.9: Will address lifestyle modification education. Code Status: Full Code DVT prophylaxis: Malathinox Advanced Care Planning-30 minutes: Anticipate discharge in the next 48 hours. Time Spent Managing Pts Care (In Minutes): 55
[2021-07-18] MEDS ORDERED: FENTANYL CITR 100 MCG/2 ML ONE (13:18)
[2021-07-18] MEDS ORDERED: MIDAZOLAM HCL 2 MG/2 ML INJ ONE (13:18)
[2021-07-18] MEDS ORDERED: ROCURONIUM 50 MG/5 ML VIAL IV ONE ×2 (13:18→14:41)
[2021-07-18] MEDS ORDERED: LIDOCAINE 2% MPF 5 ML VIAL ONE (13:18)
[2021-07-18] MEDS ORDERED: dexAMETHasone 4 MG/ML VIAL ONE (13:36)
[2021-07-18] MEDS ORDERED: KETOROLAC 30 MG/ML INJ ONE (13:36)
[2021-07-18] MEDS ORDERED: propofoL 200 MG/20 ML VIAL IV ONE (13:36)
[2021-07-18] MEDS ORDERED: NA CHLORIDE 0.9% 1,000 ML ONE ×2 (14:53→16:24)
[2021-07-18] MEDS ORDERED: GLYCOPYRROLATE 0.2 MG/ML SYR ONE ×2 (15:12→16:09)
[2021-07-18] MEDS ORDERED: NS 0.9% VIAL 10 ML ONE ×2 (15:12→15:39)
[2021-07-18] MEDS ORDERED: Phenylephrine HCl 10 MG/ML 1 ML VIAL ONE (15:12)
[2021-07-18] MEDS ORDERED: NEOSTIGMINE 1 MG/ML -5 ML ONE (16:09)
[2021-07-18] MEDS ORDERED: INSULIN -REGULAR HUMAN 50 UNIT/0.5 ML ML ONE (17:01)
--- NOTE | 2021-07-18 17:02 | RAD REPORT ---
EXAM DESCRIPTION: RADCholangiogram Oper-Xray Or07/18/2021 4:54 pm CLINICAL HISTORY: Abdominal pain FINDINGS: The examination was performed by Dr. Tejada. Fluoroscopy time 0.2 minutes 4 fluoroscopic spot images obtained. Contrast is seen abutting the inferior portion of the liver. Biliary tree does not appear opacified. Please refer to the surgeons report for additional findings
[2021-07-18] MEDS ORDERED: MORPHINE 4 MG/ML SYR IV PRN (17:05)
[2021-07-19] MEDS: INSULIN -REGULAR HUMAN 50 UNIT/0.5 ML ML SQ SCH ×6 (00:51→21:46)
[2021-07-19] MEDS: HYDROMORPHONE HCL 0.5 MG/0.5 ML INJ IV PRN ×2 (02:30→11:54)
[2021-07-19 05:05] LABS: Absolute Lymphocytes (CBC) 0.7 K/uL (0.7-4.9); Basophils % 0.2 % (0-1.3); Hematocrit 34.8 % (39.6-49.0); Lymphocytes % 7.7 % (15.3-44.8); MPV 10.6 fL (7.6-11.3); RBC Red Blood Cell Count 3.96 M/uL (4.33-5.43)
[2021-07-19 05:25] LABS: Albumin 2.4 g/dL (3.4-5.0); Bilirubin Total 0.5 mg/dL (0.2-1.0); Magnesium 1.7 mg/dL (1.8-2.4); Phosphorus 3.4 mg/dL (2.5-4.9); Protein, Total 6.1 g/dL (6.4-8.2)
[2021-07-19] MEDS: Levofloxacin 750mg IV 750 MG/150 ML BAG IV SCH (05:37)
--- NOTE | 2021-07-19 06:29 | P.PN ---
Subjective Date of Service: 07/19/21 Primary Care Provider: Tima Chief Complaint: gallstone pancreatitis Subjective: Other (Patient doing well postoperatively. Still with some fatigue. Abdominal pain improved.) Physical Examination - Vital Signs Temperature: 98.7 F Blood Pressure: 144/68 Pulse: 96 Respirations: 18 Pulse Ox (%): 96 Assessment & Plan Discharge Plan: Home Plan to discharge in: 24 Hours Physician Review Additional Text: COVID: Negative ABUS: COMPARISON: No relevant prior studies available. FINDINGS: GALLBLADDER: The gallbladder is distended. A few gallstones are noted near the neck of the gallbladder. There is no gallbladder wall thickening or pericholecystic fluid. COMMON BILE DUCT: Unremarkable as visualized. No stones. No dilation. IMPRESSION: Cholelithiasis without findings to suggest cholecystitis. CT scan Ab/Pelvis: COMPARISON: Ultrasound performed the same day FINDINGS: LUNG BASES: Minimal dependent densities in the lung bases are present. ABDOMEN: LIVER: The liver is enlarged and slightly heterogeneous. GALLBLADDER AND BILE DUCTS: Gallbladder is distended. Punctate gallstones are noted near the neck of the gallbladder. PANCREAS: No ductal dilation. No mass. SPLEEN: Unremarkable. ADRENALS: Unremarkable. No mass. KIDNEYS AND URETERS: Nonspecific bilateral perinephric fluid and stranding is present. There is no hydronephrosis or hydroureter of either kidney. Bilateral renal cysts are present, the largest is on the left. Left intrarenal calcification is present. STOMACH AND BOWEL: The stomach is distended with fluid and air. The small bowel is relatively normal in caliber. Stool is present throughout colon. There is no mucosal thickening or evidence of bowel obstruction. PELVIS: APPENDIX: The appendix is normal in caliber without surrounding inflammation. BLADDER: The bladder is significantly distended. REPRODUCTIVE: Unremarkable as visualized. ABDOMEN and PELVIS: INTRAPERITONEAL SPACE: Unremarkable. No free air. No significant fluid collection. BONES/JOINTS: Multilevel degenerative change of the spine is present. SOFT TISSUES: The soft tissues are normal. VASCULATURE: Atherosclerosis of the vasculature is present. No abdominal aortic aneurysm. LYMPH NODES: Unremarkable. No enlarged lymph nodes. IMPRESSION: 1. Bilateral nonspecific perinephric stranding. No obstructing calculus or hydronephrosis of either kidney. Findings could be secondary to nonspecific infectious process. 2. Distended gallbladder with associated cholelithiasis as seen on prior ultrasound. MRCP: COMPARISON: Abdomen Pelvis W Contrast dated 07/18/2021; Abdomen Exam Limited dated 07/18/2021 FINDINGS: Three-dimensional MRCP was performed using maximum intensity projection reconstruction on the same work station. No intrahepatic biliary tree dilatation is seen. The common bile duct is normal caliber without evidence of retained stone, stricture or mass. The pancreatic duct is not pathologically dilated. Mild distention of the gallbladder noted. Small amount of free fluid is seen in the upper abdomen. IMPRESSION: Negative MR cholangiogram. Surgery: Date: 07/18/2021 Procedure: Laparoscopic cholecystectomy with intraoperative cholangiogram Physical Exam: GENERAL: The patient is a well-developed, well-nourished, in no apparent distress. Alert and oriented x3. VITAL SIGNS: Reviewed HEENT: Neck supple LUNGS: Clear to auscultation. No crackles or wheezes are heard. HEART: Regular rate and rhythm, no appreciable gallops, rubs, murmurs or extra heart sounds ABDOMEN: Pain to the right upper quadrant appears improved. Postoperative changes noted. STEWART tube in place. EXTREMITIES: Without any cyanosis, clubbing, rash, lesions or peripheral edema. NEUROLOGIC: The patient is oriented to person, place and time. Strength and sensation are grossly intact. Face is symmetric. SKIN: Normal color, turgor and temperature. No ulcerations or rashes noted. Impression: Abdominal pain secondary to acute on chronic cholecystitis with cholelithiasis with mild pancreatitis status post laparoscopic cholecystectomy with intraoperative cholangiogram Hypertension Diabetes mellitus type 2 Hyperlipidemia Acute renal insufficiency Obesity, BMI 33.9 Plan: Abdominal pain secondary to acute on chronic cholecystitis with cholelithiasis with mild pancreatitis status post laparoscopic cholecystectomy with intraoperative cholangiogram: Patient had cholecystectomy yesterday. Patient doing well postoperatively. Continue IV antibiotic therapy. Pain seems to be well controlled. Will provide medication for pain. Encourage ambulation with physical therapy. Encourage incentive spirometer. STEWART tube in place. Anticipate continued improvement. Continue IV fluids. Encourage oral intake. Anticipate likely discharge in the next 24 hours. Hypertension: Restart labetalol 100 mg 1 pill twice daily and ramipril 10 mg 1 pill twice daily. IV medication provided. Diabetes mellitus type 2: Well start Lantus 10 units at bedtime. Provide Accu- Cheks and sliding scale. Hyperlipidemia: Restart statin medication Acute renal insufficiency: Will consult nephrology. Continue IV fluids. Encourage oral intake. Obesity, BMI 33.9: Will address lifestyle modification education. Code Status: Full Code DVT prophylaxis: Lovenox Advanced Care Planning-30 minutes: Anticipate discharge in the next 24 hours. Time Spent Managing Pts Care (In Minutes): 55
[2021-07-19] MEDS ORDERED: MAGNESIUM SULFATE 1 gm IVPB 1 GM/100 ML BAG IV ONE (09:00)
[2021-07-19] MEDS: HYDROCODONE/APAP 7.5/325 MG TAB PO PRN ×3 (09:00→23:08)
[2021-07-19] MEDS: NA CHLORIDE 0.9% 1,000 ML IV SCH (11:57)
[2021-07-19] MEDS ORDERED: D50W 25 GM/50 ML SYRINGE IV PRN (12:22)
[2021-07-19] MEDS ORDERED: GLUCAGON 1 MG/VIAL IM PRN (12:22)
[2021-07-19] MEDS: LABETALOL HCL 100 MG TAB PO SCH ×2 (14:51→21:47)
--- NOTE | 2021-07-19 14:55 | P.PN ---
Date of Service: 07/19/21 S: Patient feels somewhat better today, still has some abdominal soreness. Complains of more muscle ache. O: Vital signs are stable, minimal out through the STEWART drain A: Surgically stable status post laparoscopic cholecystectomy with attempted cholangiogram P: I will keep him 1 more day, and most likely discontinue the STEWART drain in the morning. Mitesh with him the surgical findings.
--- NOTE | 2021-07-19 15:02 | P.OP ---
Preoperative diagnosis: Acute on chronic cholecystitis with cholelithiasis Postoperative diagnosis: The same Primary procedure: Laparoscopic cholecystectomy Secondary procedure: Attempted cholangiogram Other procedure(s): Tap block Anesthesia: General anesthesia Estimated blood loss: Less than 30 cc Specimen: 1 gallbladder and contents Operative Technique: The patient brought the operating room placed supine on the table. After the induction of adequate general endotracheal anesthesia, there the abdomen was prepped with a DuraPrep solution, and he was draped in usual aseptic manner. A subumbilical incision was made. This was brought down through the skin and subcutaneous tissue. The Visiport was used to enter entered the abdominal cavity. The patient was then placed in reverse Trendelenburg and the bed was rolled to the left. We could visualize the right upper quadrant. We could see there was a marked amount of fat adherent to the inferior edge of the liver. After placing our 5 mm trocar in the upper midline, and 2 others on the right lateral side we were able to more closely look at this area. Using electrocautery we were able to detach these omental adhesions from the inferior lobe of the liver. There was also marked inflammatory response around the gallbladder itself. The gallbladder was found to be markedly distended and on aspiration showed white bile. A grasper was now able to be placed on the fundus of the gallbladder. A tedious dissection and proceed taking down these adhesions from the liver and the serosal surface of the gallbladder. Gama's pouch was identified. This patient has quite a lot of preperitoneal fat. Another 5 mm trocar was introduced into the anterior abdominal wall on the right side. We were now able to use our fan retractor to hold back the omentum. Attention was turned towards the Gama's pouch cystic duct artery area. The cystic duct was identified and isolated. A clip was placed between the gallbladder and the cystic duct. An opening was made into the cystic duct through which we attempted to obtain a intraoperative cholangiogram. We were able to cannulate the late the duct, however our injection showed just extravasation and we could not get the to pass easily into the gallbladder. I think that some of this may to be distortion of the extrahepatic biliary tree. The catheter was now removed from the peritoneal cavity. Attention was turned towards the distal portion of the cystic duct. It was clipped in the usual manner. The cystic duct and was now divided. Attention was turned towards the cystic artery. It was clipped and divided in the usual manner. Attempts were now made to remove the gallbladder from the liver bed. This gallbladder was very generous in size and was deeply buried in the crypts of the liver. This was gently dissected out the posterior wall. Some venous bleeding was encountered but was controlled using electrocautery. We needed to irrigate and aspirate at the same time. The length of this gallbladder made a technically difficult and that once again our fan retractor was used to help was provide for adequate exposure. The gallbladder was finally detached from the liver bed, placed into an Endo Catch and brought out through the umbilical trocar site. The 10 mm camera was replaced at the umbilicus. Located right upper quadrant we were able to irrigate this until the effluent was clear. No active bleeding was noted. The irrigating effluent abdomen removed from the peritoneal cavity, I decided to place a 10 mm drain in Morison's pouch and bring it out through our most lateral trocar site. Attention was turned towards the liver itself. I believe the liver grossly shows early signs of cirrhosis as well as fatty liver disease. We will arrange for follow-up in the postoperative period. I did not biopsy this as we did encounter some brisk bleeding from the liver bed. Tension was turned back towards the umbilicus. The Endo Close were able to approximate the fascial defect. A tap block was done 0.25 % Marcaine on the anterior abdominal wall. At this point the pneumoperitoneum was collapsed, the trochars removed, and the sutures tied. At this point bowen were applied to the skin as well as a sterile dressing. He was in a stable condition went to the sent to the recovery room. Needle sponge instrument count were correct. Complications: None Drain(s): STEWART drain Transferred to: Recovery Room Condition: Good
--- NOTE | 2021-07-19 16:18 | P.CNS ---
Date of Consult: 07/19/21 Reason for Consult: GARY/ CKD Requesting Physician: Ankush Montgomery Primary Care Provider: Tima Chief Complaint: gallstone pancreatitis History of Present Illness: Mr. Carpio is a 66 yo M with DM, HTN, HLD who presents with 10/10 RUQ abdominal pain beginning last night. He denies nausea and vomiting. CT shows distended gallbladder with associated cholelithiasis and bilateral nonspecific perinephric stranding possibly secondary to nonspecific infectious process. Ultrasound shows cholelithiasis without cholecystitis. Plt 122 Lipase 750 Glu 307 BUN 32 GFR 61. Given IV fluids and levaquin in the ED. 01:39 This 66 yrs old Male presents to ER via Ambulatory with complaints of Side mh7 Pain. 01:39 The patient presents with abdominal pain in the right upper quadrant. Onset: The mh7 symptoms/episode began/occurred last night, at 22:30. The symptoms do not radiate. Associated signs and symptoms: Pertinent negatives: nausea, vomiting, and diarrhea, anorexia, blood in stools, chest pain, constipation, diarrhea, dysuria, fever, headache, hematuria, nausea, palpitations, shortness of breath, testicular pain, vomiting, vomiting blood. The symptoms are described as intermittent, vague, waxing/waning. Modifying factors: The symptoms are alleviated by nothing, the symptoms are aggravated by nothing. Severity of pain: At its worst the pain was moderate last night, in the emergency department the pain is unchanged despite home interventions. Allergies No Known Allergies Allergy (Unverified 07/18/21 06:00) Home medications list reviewed: Yes Home Medications: Atorvastatin Calcium 20 mg PO BEDTIME 07/18/21 Cholecalciferol (Vitamin D3) [Vitamin D3] 5,000 unit PO DAILY 07/18/21 Glimepiride 4 mg PO BID 07/18/21 Insulin Detemir [Levemir] 32 units SQ DAILY 07/18/21 Insulin Lispro [Humalog Kwikpen U-100] 5 units SQ TID 07/18/21 Labetalol HCl 100 mg PO BID 07/18/21 Metformin HCl 1,000 mg PO BID 07/18/21 [place]-3/Dha/Epa/Fish Oil [Fish Oil 1,000 mg Softgel] 4 mg PO BID 07/18/21 Ramipril [Altace] 10 mg PO BID 07/18/21 Semaglutide [Ozempic] 0.5 mg SQ EVERY 7TH DAY 07/18/21 - Past Medical/Surgical History Diabetic: Yes -: HTN -: HLD -: DM -: leg surgery -: hernia repair Psychosocial/ Personal History: - Social History Smoking Status: Unknown if ever smoked Alcohol use: Yes CD- Drugs: No Caffeine use: Yes Place of Residence: Home Review of Systems 10-point ROS is otherwise unremarkable Cardiovascular: Edema Physical Examination Temp Pulse Resp BP Pulse Ox 98.7 F 96 H 18 144/68 H 96 07/19/21 12:29 07/19/21 12:29 07/19/21 12:29 07/19/21 12:29 07/19/21 12:29 General: Oriented x3, Cooperative HEENT: Atraumatic Neck: Supple Respiratory: Clear to auscultation bilaterally Cardiovascular: Regular rate/rhythm, Edema Gastrointestinal: Non-distended, Tenderness Musculoskeletal: No clubbing, No contractures Integumentary: No rashes, No cyanosis Neurological: Normal speech Blood work reviewed in the chart. Imagings Data: EXAM DESCRIPTION: CT Abdomen and Pelvis With Intravenous Contrast EXAM DATE/TIME: July 19, 2021 at 0308 hours CLINICAL HISTORY: The patient is 66 years old and is Male; ABD PAIN TECHNIQUE: Axial computed tomography images of the abdomen and pelvis with intravenous contrast. Sagittal and coronal reformatted images were created and reviewed. This CT exam was performed using one or more of the following dose reduction techniques: automated exposure control, adjustment of the mA and/or kV according to patient size, and/or use of iterative reconstruction technique. COMPARISON: Ultrasound performed the same day FINDINGS: LUNG BASES: Minimal dependent densities in the lung bases are present. ABDOMEN: LIVER: The liver is enlarged and slightly heterogeneous. GALLBLADDER AND BILE DUCTS: Gallbladder is distended. Punctate gallstones are noted near the neck of the gallbladder. PANCREAS: No ductal dilation. No mass. SPLEEN: Unremarkable. ADRENALS: Unremarkable. No mass. KIDNEYS AND URETERS: Nonspecific bilateral perinephric fluid and stranding is present. There is no hydronephrosis or hydroureter of either kidney. Bilateral renal cysts are present, the largest is on the left. Left intrarenal calcification is present. STOMACH AND BOWEL: The stomach is distended with fluid and air. The small bowel is relatively normal in caliber. Stool is present throughout colon. There is no mucosal thickening or evidence of bowel obstruction. PELVIS: APPENDIX: The appendix is normal in caliber without surrounding inflammation. BLADDER: The bladder is significantly distended. REPRODUCTIVE: Unremarkable as visualized. ABDOMEN and PELVIS: INTRAPERITONEAL SPACE: Unremarkable. No free air. No significant fluid collection. BONES/JOINTS: Multilevel degenerative change of the spine is present. SOFT TISSUES: The soft tissues are normal. VASCULATURE: Atherosclerosis of the vasculature is present. No abdominal aortic aneurysm. LYMPH NODES: Unremarkable. No enlarged lymph nodes. IMPRESSION: 1. Bilateral nonspecific perinephric stranding. No obstructing calculus or hydronephrosis of either kidney. Findings could be secondary to n onspecific infectious process. 2. Distended gallbladder with associated cholelithiasis as seen on prior ultrasound. EXAM DESCRIPTION: US Abdomen Limited, Gallbladder CLINICAL HISTORY: The patient is 66 years old and is Male; RUQ;Abd pain TECHNIQUE: Real-time ultrasound of the right upper quadrant with image documentation. COMPARISON: No relevant prior studies available. FINDINGS: GALLBLADDER: The gallbladder is distended. A few gallstones are noted near the neck of the gallbladder. There is no gallbladder wall thickening or pericholecystic fluid. COMMON BILE DUCT: Unremarkable as visualized. No stones. No dilation. IMPRESSION: Cholelithiasis without findings to suggest cholecystitis. Conclusions/Impression: GARY CKD III with proteinuria -No NSAIDs -Change IVF 1/2NS Hypomagnesemia -Replete prn HTN with CKD -Continue Ramipril -Continue Labetolol DM II with CKD -Continue Lantus -RISS Moderate malnutrition -Encourage nutrition Anemia in chronic illness -Monitor H&H Thank you kindly for the consultation Case reviewed with Dr. Montgomery
[2021-07-19] MEDS: NACHLORIDE 0.45% 1,000 ML IV SCH (17:33)
[2021-07-19] MEDS ORDERED: INSULIN GLARGINE 100 UNITS/ML SQ SCH (21:00)
[2021-07-19] MEDS: DOCOSAHEXANOIC AC/EPA 1000 MG PO SCH (21:43)
[2021-07-19] MEDS: ramipriL 5 MG CAP PO SCH (21:43)
[2021-07-19] MEDS: ATORVASTATIN 20 MG TAB PO SCH (21:44)
[2021-07-20] MEDS: HYDROCODONE/APAP 7.5/325 MG TAB PO PRN ×4 (05:22→23:26)
[2021-07-20] MEDS: NACHLORIDE 0.45% 1,000 ML IV SCH (05:22)
[2021-07-20] MEDS: Levofloxacin 750mg IV 750 MG/150 ML BAG IV SCH (05:22)
[2021-07-20 06:01] LABS: Absolute Lymphocytes (CBC) 0.6 K/uL (0.7-4.9); Basophils % 0.5 % (0-1.3); Hematocrit 30.7 % (39.6-49.0); Lymphocytes % 7.3 % (15.3-44.8); MPV 10.3 fL (7.6-11.3); RBC Red Blood Cell Count 3.49 M/uL (4.33-5.43)
--- NOTE | 2021-07-20 06:06 | P.PN ---
Subjective Date of Service: 07/20/21 Primary Care Provider: Tima Chief Complaint: gallstone pancreatitis Subjective: Improving, Doing well (Patient ambulating well. Patient tolerating diet.) Physical Examination - Vital Signs Temperature: 98.7 F Blood Pressure: 155/80 Pulse: 99 Respirations: 18 Pulse Ox (%): 94 - Studies Microbiology Data (last 24 hrs): 07/18/21 03:20 Clean Catch Urine [place] Count - Final No growth. 07/18/21 03:20 Clean Catch Urine - Final No growth. Assessment & Plan Discharge Plan: Home Plan to discharge in: 24 Hours Physician Review Additional Text: COVID: Negative ABUS: COMPARISON: No relevant prior studies available. FINDINGS: GALLBLADDER: The gallbladder is distended. A few gallstones are noted near the neck of the gallbladder. There is no gallbladder wall thickening or pericholecystic fluid. COMMON BILE DUCT: Unremarkable as visualized. No stones. No dilation. IMPRESSION: Cholelithiasis without findings to suggest cholecystitis. CT scan Ab/Pelvis: COMPARISON: Ultrasound performed the same day FINDINGS: LUNG BASES: Minimal dependent densities in the lung bases are present. ABDOMEN: LIVER: The liver is enlarged and slightly heterogeneous. GALLBLADDER AND BILE DUCTS: Gallbladder is distended. Punctate gallstones are noted near the neck of the gallbladder. PANCREAS: No ductal dilation. No mass. SPLEEN: Unremarkable. ADRENALS: Unremarkable. No mass. KIDNEYS AND URETERS: Nonspecific bilateral perinephric fluid and stranding is present. There is no hydronephrosis or hydroureter of either kidney. Bilateral renal cysts are present, the largest is on the left. Left intrarenal calcification is present. STOMACH AND BOWEL: The stomach is distended with fluid and air. The small bowel is relatively normal in caliber. Stool is present throughout colon. There is no mucosal thickening or evidence of bowel obstruction. PELVIS: APPENDIX: The appendix is normal in caliber without surrounding inflammation. BLADDER: The bladder is significantly distended. REPRODUCTIVE: Unremarkable as visualized. ABDOMEN and PELVIS: INTRAPERITONEAL SPACE: Unremarkable. No free air. No significant fluid collection. BONES/JOINTS: Multilevel degenerative change of the spine is present. SOFT TISSUES: The soft tissues are normal. VASCULATURE: Atherosclerosis of the vasculature is present. No abdominal aortic aneurysm. LYMPH NODES: Unremarkable. No enlarged lymph nodes. IMPRESSION: 1. Bilateral nonspecific perinephric stranding. No obstructing calculus or hydronephrosis of either kidney. Findings could be secondary to nonspecific infectious process. 2. Distended gallbladder with associated cholelithiasis as seen on prior ultrasound. MRCP: COMPARISON: Abdomen Pelvis W Contrast dated 07/18/2021; Abdomen Exam Limited dated 07/18/2021 FINDINGS: Three-dimensional MRCP was performed using maximum intensity projection reconstruction on the same work station. No intrahepatic biliary tree dilatation is seen. The common bile duct is normal caliber without evidence of retained stone, stricture or mass. The pancreatic duct is not pathologically dilated. Mild distention of the gallbladder noted. Small amount of free fluid is seen in the upper abdomen. IMPRESSION: Negative MR cholangiogram. Surgery: Date: 07/19/21 14:55 Preoperative diagnosis: Acute on chronic cholecystitis with cholelithiasis Postoperative diagnosis: The same Primary procedure: Laparoscopic cholecystectomy Secondary procedure: Attempted cholangiogram Other procedure(s): Tap block Anesthesia: General anesthesia Estimated blood loss: Less than 30 cc Specimen: 1 gallbladder and contents Physical Exam: GENERAL: The patient is a well-developed, well-nourished, in no apparent distress. Alert and oriented x3. VITAL SIGNS: Reviewed HEENT: Neck supple LUNGS: Clear to auscultation. No crackles or wheezes are heard. HEART: Regular rate and rhythm, no appreciable gallops, rubs, murmurs or extra heart sounds ABDOMEN: Pain to the right upper quadrant appears improved. Postoperative changes noted. STEWART tube in place. EXTREMITIES: Without any cyanosis, clubbing, rash, lesions or peripheral edema. NEUROLOGIC: The patient is oriented to person, place and time. Strength and sensation are grossly intact. Face is symmetric. SKIN: Normal color, turgor and temperature. No ulcerations or rashes noted. Impression: Abdominal pain secondary to acute on chronic cholecystitis with cholelithiasis with mild pancreatitis status post laparoscopic cholecystectomy with intraoperative cholangiogram Hypertension Diabetes mellitus type 2 Hyperlipidemia Acute renal insufficiency suspect underlying chronic renal disease stage III Obesity, BMI 33.9 Plan: Abdominal pain secondary to acute on chronic cholecystitis with cholelithiasis with mild pancreatitis status post laparoscopic cholecystectomy with intraoperative cholangiogram: Patient doing well postoperatively. Patient ambulating and tolerating diet. Spoke with surgery at length yesterday. Plan i s for discharge today after surgery evaluates patient and possibly remove his STEWART tube. No heavy lifting, pushing or pulling. Follow-up with surgery within 1 week. Hypertension: Continue labetalol 100 mg 1 pill twice daily and ramipril 10 mg 1 pill twice daily. Diabetes mellitus type 2: Increase Lantus to 10 units BID. Continue with insulin therapy at home. Provide Accu-Cheks and sliding scale. Hyperlipidemia: Continue with statin medication Acute renal insufficiency suspect underlying chronic renal disease stage III: Overall stable. Obesity, BMI 33.9: Will address lifestyle modification education. Code Status: Full Code DVT prophylaxis: Lovenox Advanced Care Planning-30 minutes: Anticipate discharge later today.. Time Spent Managing Pts Care (In Minutes): 55
[2021-07-20 06:19] LABS: Bilirubin Total 0.7 mg/dL (0.2-1.0); Magnesium 1.8 mg/dL (1.8-2.4); Potassium 4.3 mmol/L (3.5-5.1); Protein, Total 5.8 g/dL (6.4-8.2)
[2021-07-20] MEDS ORDERED: MAGNESIUM SULFATE 1 gm IVPB 1 GM/100 ML BAG IV ONE (07:04)
--- NOTE | 2021-07-20 08:36 | P.DS ---
Admission Date: 07/18/21 Discharge Date: 07/21/21 Primary Care Provider: Dr. Alfred Disposition: [facility] Discharge Condition: GOOD Reason for Admission: gallstone pancreatitis Consultations: Surgery-Dr. Tejada Nephrology-Dr. Castro Procedures: COVID: Negative ABUS: COMPARISON: No relevant prior studies available. FINDINGS: GALLBLADDER: The gallbladder is distended. A few gallstones are noted near the neck of the gallbladder. There is no gallbladder wall thickening or pericholecystic fluid. COMMON BILE DUCT: Unremarkable as visualized. No stones. No dilation. IMPRESSION: Cholelithiasis without findings to suggest cholecystitis. CT scan Ab/Pelvis: COMPARISON: Ultrasound performed the same day FINDINGS: LUNG BASES: Minimal dependent densities in the lung bases are present. ABDOMEN: LIVER: The liver is enlarged and slightly heterogeneous. GALLBLADDER AND BILE DUCTS: Gallbladder is distended. Punctate gallstones are noted near the neck of the gallbladder. PANCREAS: No ductal dilation. No mass. SPLEEN: Unremarkable. ADRENALS: Unremarkable. No mass. KIDNEYS AND URETERS: Nonspecific bilateral perinephric fluid and stranding is present. There is no hydronephrosis or hydroureter of either kidney. Bilateral renal cysts are present, the largest is on the left. Left intrarenal calcification is present. STOMACH AND BOWEL: The stomach is distended with fluid and air. The small bowel is relatively normal in caliber. Stool is present throughout colon. There is no mucosal thickening or evidence of bowel obstruction. PELVIS: APPENDIX: The appendix is normal in caliber without surrounding inflammation. BLADDER: The bladder is significantly distended. REPRODUCTIVE: Unremarkable as visualized. ABDOMEN and PELVIS: INTRAPERITONEAL SPACE: Unremarkable. No free air. No significant fluid collection. BONES/JOINTS: Multilevel degenerative change of the spine is present. SOFT TISSUES: The soft tissues are normal. VASCULATURE: Atherosclerosis of the vasculature is present. No abdominal aortic aneurysm. LYMPH NODES: Unremarkable. No enlarged lymph nodes. IMPRESSION: 1. Bilateral nonspecific perinephric stranding. No obstructing calculus or hydronephrosis of either kidney. Findings could be secondary to nonspecific infectious process. 2. Distended gallbladder with associated cholelithiasis as seen on prior ultrasound. MRCP: COMPARISON: Abdomen Pelvis W Contrast dated 07/18/2021; Abdomen Exam Limited dated 07/18/2021 FINDINGS: Three-dimensional MRCP was performed using maximum intensity projection reconstruction on the same work station. No intrahepatic biliary tree dilatation is seen. The common bile duct is normal caliber without evidence of retained stone, stricture or mass. The pancreatic duct is not pathologically dilated. Mild distention of the gallbladder noted. Small amount of free fluid is seen in the upper abdomen. IMPRESSION: Negative MR cholangiogram. Surgery: Date: 07/19/21 14:55 Preoperative diagnosis: Acute on chronic cholecystitis with cholelithiasis Postoperative diagnosis: The same Primary procedure: Laparoscopic cholecystectomy Secondary procedure: Attempted cholangiogram Other procedure(s): Tap block Anesthesia: General anesthesia Estimated blood loss: Less than 30 cc Specimen: 1 gallbladder and contents Medical Problem List: Abdominal pain secondary to acute on chronic cholecystitis with cholelithiasis with mild pancreatitis status post laparoscopic cholecystectomy with intraoperative cholangiogram Hypertension Diabetes mellitus type 2 Hyperlipidemia Acute renal insufficiency suspect underlying chronic renal disease stage III Early alcoholic cirrhosis with fatty liver Alcohol abuse Obesity, BMI 33.9 Brief History of Present Illness: 66-year-old male with history of diabetes, hypertension, hyperlipidemia, chronic renal disease stage III. Patient presented with abdominal pain to the right upper quadrant. CT scan revealed distended gallbladder with cholelithiasis. Patient was admitted for treatment. Hospital Course: Patient presented with abdominal pain secondary to acute on chronic cholecystitis with cholelithiasis. Mild pancreatitis noted. CT scan and abdominal ultrasound confirmed cholecystitis with cholelithiasis. Patient was admitted for treatment. MRCP was unremarkable. Patient was seen and evaluated by surgery. Surgical intervention was recommended. Patient had laparoscopic cholecystectomy with intraoperative cholangiogram. Surgeon reported patient likely had early cirrhosis and fatty liver. Patient tolerated procedure well. Pain controlled. Patient able to tolerate diet at discharge. Patient ambulating well. At discharge patient will follow up with surgery within 1 week to follow-up his hospitalization. Recommend to continue incentive spirometer as directed. Recommend no heavy lifting, pushing or pulling. Follow-up with PCP within 1 week to follow-up his hospitalization. Patient may continue with stool softener daily. Social work was consulted prior to discharge to evaluate for possible home health and physical therapy. Recommend GI evaluation as an outpatient to further evaluate his fatty liver and possible early cirrhosis. Cessation of alcohol will need to be enforced. Patient with hypertension. This has remained stable. At discharge he will continue with labetalol 100 mg 1 pill twice daily and ramipril 10 mg 1 pill twice daily. Recommend to maintain blood pressure less than 130/80. If blood pressure remains above 140/90 further adjustment may be required. This can be done with the help of his PCP. Patient with diabetes mellitus type 2. Overall stable. At discharge patient will continue with his current regimen of Levemir 32 units daily, Humalog KwikPen 5 units 3 times a day, glimepiride 4 mg 1 pill twice daily, and Ozempic every week. Due to his chronic renal disease will recommend to decrease Metformin to 1000 mg daily. Recommend to maintain blood sugar less than 140 fasting and less than 200 after meals. If blood sugars remain above 200 he is to contact his PCP for further recommendation. Recommend to recheck hemoglobin A1c every 3 months to monitor his progress. Patient with hyperlipidemia. At discharge patient will continue with Lipitor 20 mg daily and fish oil as directed. Patient with acute on chronic renal disease stage III. Overall stable. Nephrology was consulted to further monitor and address. Future medications may need to be renally dosed. Recommend no further use of nonsteroidal anti- inflammatories. Recommend follow-up with his PCP who also is a rn testing to further monitor his condition. Patient with obesity, BMI 33.9. Lifestyle modification education provided. Patient with alcohol abuse. Alcohol cessation addressed in detail. As mentioned above surgeon reported possible early cirrhosis and fatty liver. Recommend GI evaluation as an outpatient to further address. Vital Signs/Physical Exam: Temp Pulse Resp BP Pulse Ox 98.7 F 99 H 18 155/80 H 94 07/20/21 08:35 07/20/21 08:35 07/20/21 08:35 07/20/21 08:35 07/20/21 08:35 General: Alert, In no apparent distress, Oriented x3, Cooperative HEENT: Atraumatic Neck: Supple Respiratory: Clear to auscultation bilaterally, Normal air movement Cardiovascular: Normal pulses, Regular rate/rhythm Gastrointestinal: Normal bowel sounds, Soft and benign, Non-distended, Other (Postoperative changes noted. Pain controlled) Musculoskeletal: No erythema, No tenderness, No warmth Integumentary: No tenderness/swelling, No erythema, No warmth, No cyanosis Neurological: Normal speech, Normal strength at 5/5 x4 extr, Normal tone Laboratory Data at Discharge: WBC 8.80 K/uL (4.3-10.9) 07/20/21 05:20 Hgb 10.1 g/dL (13.6-17.9) L 07/20/21 05:20 Hct 30.7 % (39.6-49.0) L 07/20/21 05:20 Plt Count 103 K/uL (152-406) L 07/20/21 05:20 Sodium 137 mmol/L (136-145) 07/20/21 05:20 Potassium 4.3 mmol/L (3.5-5.1) 07/20/21 05:20 BUN 35 mg/dL (7-18) H 07/20/21 05:20 Creatinine 1.63 mg/dL (0.55-1.3) H 07/20/21 05:20 Glucose 257 mg/dL (74-106) H 07/20/21 05:20 Phosphorus 3.4 mg/dL (2.5-4.9) 07/19/21 04:47 Magnesium 1.8 mg/dL (1.8-2.4) 07/20/21 05:20 Total Bilirubin 0.7 mg/dL (0.2-1.0) 07/20/21 05:20 AST 80 U/L (15-37) H 07/20/21 05:20 ALT 102 U/L (12-78) H 07/20/21 05:20 Alkaline Phosphatase 55 U/L (45-117) 07/20/21 05:20 Triglycerides 208 mg/dL (<150) H 07/18/21 06:57 Cholesterol 152 mg/dL (<200) 07/18/21 06:57 HDL Cholesterol 39 mg/dL (40-60) L 07/18/21 06:57 Cholesterol/HDL Ratio 3.90 07/18/21 06:57 Amylase 56 U/L (25-115) 07/18/21 06:57 Lipase Cancelled 07/20/21 07:15 Home Medications: Atorvastatin Calcium 20 mg PO BEDTIME 07/18/21 Cholecalciferol (Vitamin D3) [Vitamin D3] 5,000 unit PO DAILY 07/18/21 Glimepiride 4 mg PO BID 07/18/21 Insulin Detemir [Levemir] 32 units SQ DAILY 07/18/21 Insulin Lispro [Humalog Kwikpen U-100] 5 units SQ TID 07/18/21 Labetalol HCl 100 mg PO BID 07/18/21 Alpine-3/Dha/Epa/Fish Oil [Fish Oil 1,000 mg Softgel] 4 mg PO BID 07/18/21 Ramipril [Altace] 10 mg PO BID 07/18/21 Semaglutide [Ozempic] 0.5 mg SQ EVERY 7TH DAY 07/18/21 Clopidogrel Bisulfate [Clopidogrel] 75 mg PO DAILY 07/20/21 Docusate [Colace Cap*] 100 mg PO DAILY #30 cap 07/20/21 Metformin HCl 1,000 mg PO DAILY #10 07/20/21 New Medications: Docusate [Colace Cap*] 100 mg PO DAILY #30 cap Metformin HCl 1,000 mg PO DAILY #10 Physician Discharge Instructions: Patient presented with abdominal pain secondary to acute on chronic cholecystitis with cholelithiasis. Mild pancreatitis noted. CT scan and abdominal ultrasound confirmed cholecystitis with cholelithiasis. Patient was admitted for treatment. MRCP was unremarkable. Patient was seen and evaluated by surgery. Surgical intervention was recommended. Patient had laparoscopic cholecystectomy with intraoperative cholangiogram. Surgeon reported patient likely had early cirrhosis and fatty liver. Patient tolerated procedure well. Pain controlled. Patient able to tolerate diet at discharge. Patient ambulating well. At discharge patient will follow up with surgery within 1 week to follow-up his hospitalization. Recommend to continue incentive spirometer as directed. Recommend no heavy lifting, pushing or pulling. Follow-up with PCP within 1 week to follow-up his hospitalization. Patient may continue with stool softener daily. Social work was consulted prior to discharge to evaluate for possible home health and physical therapy. Recommend GI evaluation as an outpatient to further evaluate his fatty liver and possible early cirrhosis. Cessation of alcohol will need to be enforced. Patient with hypertension. This has remained stable. At discharge he will continue with labetalol 100 mg 1 pill twice daily and ramipril 10 mg 1 pill twice daily. Recommend to maintain blood pressure less than 130/80. If blood pressure remains above 140/90 further adjustment may be required. This can be done with the help of his PCP. Patient with diabetes mellitus type 2. Overall stable. At discharge patient will continue with his current regimen of Levemir 32 units daily, Humalog KwikPen 5 units 3 times a day, glimepiride 4 mg 1 pill twice daily, and Ozempic every week. Due to his chronic renal disease will recommend to decrease Metformin to 1000 mg daily. Recommend to maintain blood sugar less than 140 fasting and less than 200 after meals. If blood sugars remain above 200 he is to contact his PCP for further recommendation. Recommend to recheck hemoglobin A1c every 3 months to monitor his progress. Patient with hyperlipidemia. At discharge patient will continue with Lipitor 20 mg daily and fish oil as directed. Patient with acute on chronic renal disease stage III. Overall stable. Nephrology was consulted to further monitor and address. Future medications may need to be renally dosed. Recommend no further use of nonsteroidal anti- inflammatories. Recommend follow-up with his PCP who also is a rn testing to further monitor his condition. Patient with obesity, BMI 33.9. Lifestyle modification education provided. Patient with alcohol abuse. Alcohol cessation addressed in detail. As mentioned above surgeon reported possible early cirrhosis and fatty liver. Recommend GI evaluation as an outpatient to further address. Diet: Renal Activity: No lifting more than 10 lbs Followup: NONE,NONE [Primary Care Provider] - Time spent managing pt's care (in minutes): 55
[2021-07-20] MEDS ORDERED: DOCUSATE NA 100 MG CAP PO SCH (09:00)
[2021-07-20] MEDS ORDERED: FUROSEMIDE 20 MG/ 2ML VIAL IV ONE (09:37)
[2021-07-20] MEDS ORDERED: VITAMIN D 5,000 UNIT CAP PO SCH (10:00)
[2021-07-20] MEDS: ramipriL 5 MG CAP PO SCH ×2 (10:10→20:50)
[2021-07-20] MEDS: LABETALOL HCL 100 MG TAB PO SCH ×2 (10:11→20:49)
[2021-07-20] MEDS: DOCOSAHEXANOIC AC/EPA 1000 MG PO SCH ×2 (10:13→20:49)
[2021-07-20] MEDS: VITAMIN D 5,000 UNIT CAP PO SCH (10:14)
[2021-07-20] MEDS: CALCITROL 0.25 MCG CAP PO SCH (10:14)
[2021-07-20] MEDS: INSULIN GLARGINE 100 UNITS/ML SQ SCH ×2 (10:17→20:50)
[2021-07-20] MEDS: INSULIN -REGULAR HUMAN 50 UNIT/0.5 ML ML SQ SCH ×4 (10:18→20:50)
[2021-07-20 11:11] VITALS: O2SAT 95
--- NOTE | 2021-07-20 15:21 | P.PN ---
Date of Service: 07/20/21 S: Patient doing better today, still slow to mobilize. Somewhat unsteady on his feet. Pain is controlled. O: Vital signs are stable, abdomen is soft mildly distended minimal after STEWART drain. A: Patient is much improved since his initial presentation. He has been doing well postoperatively but would benefit from another day nursing care. P: I will keep him 1 more day, and most likely discontinue the STEWART drain in the morning. I discussed with the patient and his . She is very relieved to know she is staying with the extra day.
--- NOTE | 2021-07-20 20:25 | P.PN ---
Date of Service: 07/20/21 Vital Signs Temp Pulse Resp BP Pulse Ox 97.3 F 96 H 20 142/67 H 96 07/20/21 16:00 07/20/21 16:00 07/20/21 16:00 07/20/21 16:00 07/20/21 16:00 Medications Hydrocodone Bitart/Acetaminophen (Hydrocodone/Apap 7.5/325 Mg Tab) 1 tab PO Q6H PRN PRN Reason: Pain scale 5-7 (Moderate) Last Admin: 07/20/21 18:04 Dose: 1 tab Documented by: Atorvastatin Calcium (Atorvastatin 20 Mg Tab) 20 mg PO BEDTIME ON LICENSE OF [facility] Last Admin: 07/19/21 21:44 Dose: 20 mg Documented by: Calcitriol (Calcitrol 0.25 Mcg Cap) 0.5 mcg PO DAILY ON LICENSE OF [facility] Last Admin: 07/20/21 10:14 Dose: 0.5 mcg Documented by: Cholecalciferol (Vitamin D 5,000 Unit Cap) 5,000 unit PO DAILY ON LICENSE OF [facility] Last Admin: 07/20/21 10:14 Dose: 5,000 unit Documented by: Dextrose (D50w 25 Gm/50 Ml Syringe) 12.5 gm IV PRN PRN; Protocol PRN Reason: HYPOGLYCEMIA Docusate Sodium (Docusate Na 100 Mg Cap) 100 mg PO BID ON LICENSE OF [facility] Fish Oil (Docosahexanoic Ac/Epa 1000 Mg) 1,000 mg PO BID ON LICENSE OF [facility] Last Admin: 07/20/21 10:13 Dose: 1,000 mg Documented by: Glucagon (Glucagon 1 Mg/Vial) 1 mg IM 1X PRN; Protocol PRN Reason: HYPOGLYCEMIA Hydralazine HCl (Hydralazine Hcl 20 Mg/Ml Vial) 10 mg IV Q4HP PRN PRN Reason: FOR SBP>160 OR DBP>100 MMHG Last Admin: 07/18/21 06:21 Dose: 10 mg Documented by: Hydromorphone HCl (Hydromorphone Hcl 0.5 Mg/0.5 Ml Inj) 0.5 mg IV Q4H PRN PRN Reason: Pain scale 5-7 (Moderate) Last Admin: 07/19/21 11:54 Dose: 0.5 mg Documented by: Insulin Glargine (Insulin Glargine 100 Units/Ml) 10 units SQ BID ON LICENSE OF [facility] Last Admin: 07/20/21 10:17 Dose: 10 units Documented by: Insulin Human Regular (Insulin -Regular Human 50 Unit/0.5 Ml Ml) 0 unit SQ ACHS ON LICENSE OF [facility]; Protocol Last Admin: 07/20/21 16:51 Dose: 6 unit Documented by: Labetalol HCl (Labetalol Hcl 100 Mg Tab) 100 mg PO BID ON LICENSE OF [facility] Last Admin: 07/20/21 10:11 Dose: 100 mg Documented by: Levofloxacin (Levofloxacin 750 Mg Tab) 750 mg PO Q48H ON LICENSE OF [facility] Morphine Sulfate (Morphine 4 Mg/Ml Syr) 4 mg IV Q2H PRN PRN Reason: Pain scale 8-10 (Severe) Ondansetron HCl (Ondansetron 4 Mg/2 Ml Vial) 4 mg IV Q6HP PRN PRN Reason: NAUSEA / VOMITING Last Admin: 07/18/21 10:27 Dose: 4 mg Documented by: Ramipril (Ramipril 5 Mg Cap) 10 mg PO BID ON LICENSE OF [facility] Last Admin: 07/20/21 10:10 Dose: 10 mg Documented by: Sodium Chloride (Flush Normal Saline 10 Ml) 10 ml IV BID ON LICENSE OF [facility] Last Admin: 07/20/21 09:00 Dose: 10 ml Documented by: Tramadol HCl (Tramadol Hcl 50 Mg Tab) 50 mg PO TID PRN PRN Reason: Pain scale 2-4 (Mild) Microbiology Results 07/18/21 03:20 Clean Catch Urine Capron Count - Final No growth. 07/18/21 03:20 Clean Catch Urine - Final No growth. Assessment/ Plan: Nephrology Progress Note Still with persistent abdominal and difficult for him to get out of bed. Patient and reports edema No chest pain or dyspnea No acute events overnight Vitals, medications blood work and imaging reviewed in the chart General: Oriented x3, Cooperative HEENT: Atraumatic Neck: Supple Respiratory: Clear to auscultation bilaterally Cardiovascular: Regular rate/rhythm, Edema Gastrointestinal: Non-distended, Tenderness Musculoskeletal: No clubbing, No contractures Integumentary: No rashes, No cyanosis Neurological: Normal speech Blood work reviewed in the chart. Imagings Data: EXAM DESCRIPTION: CT Abdomen and Pelvis With Intravenous Contrast EXAM DATE/TIME: July 19, 2021 at 0308 hours CLINICAL HISTORY: The patient is 66 years old and is Male; ABD PAIN TECHNIQUE: Axial computed tomography images of the abdomen and pelvis with intravenous contrast. Sagittal and coronal reformatted images were created and reviewed. This CT exam was performed using one or more of the following dose reduction techniques: automated exposure control, adjustment of the mA and/or kV according to patient size, and/or use of iterative reconstruction technique. COMPARISON: Ultrasound performed the same day FINDINGS: LUNG BASES: Minimal dependent densities in the lung bases are present. ABDOMEN: LIVER: The liver is enlarged and slightly heterogeneous. GALLBLADDER AND BILE DUCTS: Gallbladder is distended. Punctate gallstones are noted near the neck of the gallbladder. PANCREAS: No ductal dilation. No mass. SPLEEN: Unremarkable. ADRENALS: Unremarkable. No mass. KIDNEYS AND URETERS: Nonspecific bilateral perinephric fluid and stranding is present. There is no hydronephrosis or hydroureter of either kidney. Bilateral renal cysts are present, the largest is on the left. Left intrarenal calcification is present. STOMACH AND BOWEL: The stomach is distended with fluid and air. The small bowel is relatively normal in caliber. Stool is present throughout colon. There is no mucosal thickening or evidence of bowel obstruction. PELVIS: APPENDIX: The appendix is normal in caliber without surrounding inflammation. BLADDER: The bladder is significantly distended. REPRODUCTIVE: Unremarkable as visualized. ABDOMEN and PELVIS: INTRAPERITONEAL SPACE: Unremarkable. No free air. No significant fluid collection. BONES/JOINTS: Multilevel degenerative change of the spine is present. SOFT TISSUES: The soft tissues are normal. VASCULATURE: Atherosclerosis of the vasculature is present. No abdominal aortic aneurysm. LYMPH NODES: Unremarkable. No enlarged lymph nodes. IMPRESSION: 1. Bilateral nonspecific perinephric stranding. No obstructing calculus or hydronephrosis of either kidney. Findings could be secondary to nonspecific infectious process. 2. Distended gallbladder with associated cholelithiasis as seen on prior ultrasound. EXAM DESCRIPTION: US Abdomen Limited, Gallbladder CLINICAL HISTORY: The patient is 66 years old and is Male; RUQ;Abd pain TECHNIQUE: Real-time ultrasound of the right upper quadrant with image documentation. COMPARISON: No relevant prior studies available. FINDINGS: GALLBLADDER: The gallbladder is distended. A few gallstones are noted near the neck of the gallbladder. There is no gallbladder wall thickening or pericholecystic fluid. COMMON BILE DUCT: Unremarkable as visualized. No stones. No dilation. IMPRESSION: Cholelithiasis without findings to suggest cholecystitis. Conclusions/Impression: GARY CKD III with proteinuria -No NSAIDs -Discontinue IVF Hypomagnesemia -Replete prn HTN with CKD -Continue Ramipril -Continue Labetolol LE Edema -Discontinue IVF and give Lasix IV DM II with CKD & Hyperglycemia -Continue Lantus -RISS Moderate malnutrition -Encourage nutrition Anemia in chronic illness -Monitor H&H Case reviewed with Dr. Montgomery
[2021-07-20] MEDS: TRAMADOL HCL 50 MG TAB PO PRN (20:49)
[2021-07-20] MEDS: ATORVASTATIN 20 MG TAB PO SCH (20:50)
[2021-07-20] MEDS: DOCUSATE NA 100 MG CAP PO SCH (20:50)
[2021-07-21] MEDS: HYDROCODONE/APAP 7.5/325 MG TAB PO PRN (05:31)
[2021-07-21 05:59] LABS: Absolute Lymphocytes (CBC) 0.7 K/uL (0.7-4.9); Basophils % 0.4 % (0-1.3); Hematocrit 30.1 % (39.6-49.0); Lymphocytes % 8.8 % (15.3-44.8); MPV 9.9 fL (7.6-11.3); RBC Red Blood Cell Count 3.42 M/uL (4.33-5.43)
[2021-07-21 06:03] LABS: Albumin 1.9 g/dL (3.4-5.0); Bilirubin Total 0.6 mg/dL (0.2-1.0); Potassium 4.2 mmol/L (3.5-5.1); Protein, Total 6.1 g/dL (6.4-8.2)
[2021-07-21] MEDS: ramipriL 5 MG CAP PO SCH (08:49)
[2021-07-21] MEDS: CALCITROL 0.25 MCG CAP PO SCH (08:50)
[2021-07-21] MEDS: DOCOSAHEXANOIC AC/EPA 1000 MG PO SCH (08:50)
[2021-07-21] MEDS: DOCUSATE NA 100 MG CAP PO SCH (08:50)
[2021-07-21] MEDS: VITAMIN D 5,000 UNIT CAP PO SCH (08:50)
[2021-07-21] MEDS: LABETALOL HCL 100 MG TAB PO SCH (08:50)
[2021-07-21] MEDS: INSULIN GLARGINE 100 UNITS/ML SQ SCH (08:51)
[2021-07-21] MEDS: INSULIN -REGULAR HUMAN 50 UNIT/0.5 ML ML SQ SCH (08:52)
[2021-07-21 08:53] VITALS: BP 157/76
[2021-07-21] MEDS: TRAMADOL HCL 50 MG TAB PO PRN (08:59)
[2021-07-21 10:32] VITALS: TEMP 98.7
[2021-07-22] MEDS ORDERED: levoFLOXacin 750 MG TAB PO SCH (09:00)
== END 2021-07-21 11:59 | disposition home health service (06) | DRG 417 ==
LOC: ER 01:16 → ERHOLD 04:48 → 2ND 05:32
PROVIDERS: ADMIT Family Medicine; ATTEND Family Medicine
PROC: 0FT44ZZ Resection of Gallbladder, Percutaneous Endoscopic Approach (ICD-10-PCS; principal; 2021-07-19)
PROC: BF502Z0 Other Imaging of Bile Ducts using Fluorescing Agent, Intraoperative (ICD-10-PCS; 2021-07-19)
DX: K80.12 Calculus of gallbladder with acute and chronic cholecystitis without obstruction (principal); K85.90 Acute pancreatitis without necrosis or infection, unspecified; N17.9 Acute kidney failure, unspecified; E46 Unspecified protein-calorie malnutrition; I12.9 Hypertensive chronic kidney disease with stage 1 through stage 4 chronic kidney disease, or unspecified chronic kidney disease; E11.22 Type 2 diabetes mellitus with diabetic chronic kidney disease; N18.30 Chronic kidney disease, stage 3 unspecified; E78.5 Hyperlipidemia, unspecified; K70.30 Alcoholic cirrhosis of liver without ascites; E66.9 Obesity, unspecified; Z68.33 Body mass index [BMI] 33.0-33.9, adult; F10.10 Alcohol abuse, uncomplicated; E83.42 Hypomagnesemia; D63.8 Anemia in other chronic diseases classified elsewhere; Z20.822 Contact with and (suspected) exposure to COVID-19
CPT/HCPCS: 0241U; 36415; 74177; 74181; 74300; 76705; 80048; 80053; 80061; 80076; 81003; 81015; 82150; 82947; 83036; 83690; 83735; 84100; 85025; 87086; 87088; 88304; 93005; 94010; 94760; 96374; 96375; 99284; J0360; J0694; J1100; J1170; J1200; J1815; J1940; J2250; J2270; J2370; J2405; J2704; J2710; J3010; J3475; J7030; J7040; Q9967

== ENCOUNTER 2021-07-25 12:14 | Inpatient (IN) | payer OTHER ==
[2021-07-25 13:40] LABS: Basophils % 0.6 % (0-1.3); Hematocrit 33.1 % (39.6-49.0); Lymphocytes % 12.4 % (15.3-44.8); MPV 8.5 fL (7.6-11.3)
[2021-07-25 13:57] LABS: Albumin 1.7 g/dL (3.4-5.0); Bilirubin Direct 0.2 mg/dL (0-0.2); Bilirubin Total 0.3 mg/dL (0.2-1.0); Potassium 4.3 mmol/L (3.5-5.1); Protein, Total 6.7 g/dL (6.4-8.2)
[2021-07-25] MEDS ORDERED: HYDROMORPHONE HCL 1 MG/ML INJ ONE (14:14)
--- NOTE | 2021-07-25 14:59 | RAD REPORT ---
EXAM DESCRIPTION: CTAbdomen Pelvis W Contrast - 07/25/2021 2:38 pm CLINICAL HISTORY: ABD PAIN COMPARISON: Abdomen Pelvis W Contrast dated 07/18/2021 TECHNIQUE: CT of the abdomen and pelvis was performed. All CT scans are performed using dose optimization technique as appropriate and may include automated exposure control or mA/KV adjustment according to patient size. FINDINGS: Lower chest: Small right pleural effusion with underlying atelectasis. Coronary artery cindi cifications. Liver: Hepatic steatosis. Biliary: Status post cholecystectomy. There is a gas and fluid containing collection along the gallbl adder fossa measuring 5.3 by 1.8 cm. Stomach: No significant focal abnormality. Duodenum: No significant focal abnormality. Pancreas: No significant abnormality. Spleen: No significant abnormality. Adrenal: No suspicious lesions. Kidney/ureter: No hydronephrosis. Nonobstructing stones in the left kidney. Too small to characterize and/or benign appearing renal lesions are noted. Retroperitoneum: No retroperitoneal adenopathy. Vascular: No aneurysm. Bowel: No significant focal abnormality. Peritoneum: No ascites or free air. Bladder: Grossly unremarkable. Reproductive: No adnexal masses. Bones: No acute fracture. Other: n/a IMPRESSION: Gas and fluid containing collection in the gallbladder fossa. The sterility is indetermi nova but could represent an abscess. A leak considered less likely. This collection is probably not l arge enough to perform a pigtail drain percutaneously.
--- NOTE | 2021-07-25 15:23 | ER ---
Nurse's Notes [facility] Name: Bj Carpio Age: 66 yrs Sex: Male : 1955 Arrival Date: 07/25/2021 Time: 12:17 Bed 25 Private MD: Timmy Alfred Diagnosis: Abdominal Pain - Post Operative;Intrabdominal Abscess Presentation: 07/25 12:44 Chief complaint: Patient states: Pt had a cholecystectomy on 07/18/21 and was released vg1 from hospital on 07/21/21. Pt states pain never went away and now when takes a deep breath or moves a certain way the pain is a shooting pain. States Right flank pain and surgical site pain. Pt spoke with Dr Tejada and was told to come into ED. Denies NV, states diarrhea and last BM was 07/23/21. Coronavirus screen: Vaccine status: Patient reports receiving the 2nd dose of the covid vaccine. Client denies travel out of the [place] in the last 14 days. Ebola Screen: Patient negative for fever greater than or equal to 101.5 degrees Fahrenheit, and additional compatible Ebola Virus Disease symptoms. Initial Sepsis Screen: Does the patient meet any 2 criteria? No. Patient's initial sepsis screen is negative. Does the patient have a suspected source of infection? No. Patient's initial sepsis screen is negative. Risk Assessment: Do you want to hurt yourself or someone else? Patient reports no desire to harm self or others. Onset of symptoms was July 21, 2021. 12:44 Method Of Arrival: Ambulatory 1 12:44 Acuity: MANUELA 3 vg1 Triage Assessment: 12:53 General: Appears in no apparent distress. uncomfortable, Behavior is calm, cooperative. vg1 Pain: Complains of pain in Right flank and ABD. Historical: - Allergies: 12:53 No Known Allergies; vg1 - Home Meds: 12:53 atorvastatin 20 mg Oral tab 1 tab once daily [Active]; Fish Oil 1,000 mg (120 mg-180 vg1 mg) Oral cap four times a day [Active]; glimepiride 4 mg Oral tab 2 tabs once daily [Active]; Humalog U-100 Insulin 100 unit/mL Sub-Q crtg 5 units three times a day [Active]; labetalol 100 mg Oral tab 1 tab 2 times per day [Active]; metformin 1,000 mg Oral tab 1 tab 2 times per day [Active]; - PMHx: 12:53 Diabetes - IDDM; Diabetes - NIDDM; High Cholesterol; Hypertension; vg1 - PSHx: 12:53 Cholecystectomy; vg1 - Immunization history:: Adult Immunizations up to date, Client reports receiving the 2nd dose of the Covid vaccine. - Social history:: Smoking status: Patient reports the use of cigarette tobacco products, cigars, once a month. Screenin:26 Abuse screen: Denies threats or abuse. Denies injuries from another. Nutritional ld1 screening: No deficits noted. Tuberculosis screening: No symptoms or risk factors identified. Fall Risk None identified. Assessment: 13:26 General: Appears in no apparent distress. comfortable, Behavior is calm, cooperative, ld1 appropriate for age. Pain: Complains of pain in right upper quadrant Pain does not radiate. Pain currently is 8 out of 10 on a pain scale. Quality of pain is described as throbbing, Pain began 2-3 days ago. Is continuous. Neuro: Level of Consciousness is awake, alert, obeys commands, Oriented to person, place, time, situation. Cardiovascular: Capillary refill < 3 seconds Patient's skin is warm and dry. Rhythm is regular. Respiratory: Airway is patent Respiratory effort is even, unlabored, Respiratory pattern is regular, symmetrical. GI: Abdomen is round non-distended, Reports upper abdominal pain. : No signs and/or symptoms were reported regarding the genitourinary system. EENT: No signs and/or symptoms were reported regarding the EENT system. Derm: No signs and/or symptoms reported regarding the dermatologic system. Musculoskeletal: No signs and/or symptoms reported regarding the musculoskeletal system. 15:03 Reassessment: Patient appears in no apparent distress at this time. No changes from ld1 previously documented assessment. Patient and/or family updated on plan of care and expected duration. Pain level reassessed. Patient is alert, oriented x 3, equal unlabored respirations, skin warm/dry/pink. 17:03 Reassessment: Patient appears in no apparent distress at this time. No changes from ld1 previously documented assessment. Patient and/or family updated on plan of care and expected duration. Pain level reassessed. Patient is alert, oriented x 3, equal unlabored respirations, skin warm/dry/pink. 18:22 Reassessment: Patient appears in no apparent distress at this time. No changes from ld1 previously documented assessment. Patient and/or family updated on plan of care and expected duration. Pain level reassessed. Patient is alert, oriented x 3, equal unlabored respirations, skin warm/dry/pink. 20:35 Reassessment: Patient appears in no apparent distress at this time. No changes from ld1 previously documented assessment. Patient and/or family updated on plan of care and expected duration. Pain level reassessed. Patient is alert, oriented x 3, equal unlabored respirations, skin warm/dry/pink. Vital Signs: 12:44 BP 158 / 79; Pulse 84; Resp 20; Temp 98.9(O); Pulse Ox 97% ; Weight 113.4 kg; Height 6 vg1 ft. 0 in. (182.88 cm); Pain 3/10; 13:26 BP 152 / 77; Pulse 80; Resp 18; Pulse Ox 98% on R/A; Pain 8/10; ld1 15:03 BP 149 / 76; Pulse 82; Resp 18; Pulse Ox 97% on R/A; ld1 17:03 BP 134 / 70; Pulse 64; Resp 18; Pulse Ox 97% on R/A; ld1 18:31 BP 136 / 75; Pulse 79; Resp 18; Pulse Ox 95% on R/A; ld1 12:44 Body Mass Index 33.91 (113.40 kg, 182.88 cm) vg1 ED Course: 12:17 Patient arrived in ED. mr 12:18 Timmy Alfred MD is Private Physician. mr 12:53 Triage completed. vg1 12:53 Arm band placed on. vg1 13:02 Torsten Carson PA is PHCP. [facility] 13:02 Alberto Spencer MD is Attending Physician. [facility] 13:14 Marta Moore, COREY is Primary Nurse. ld1 13:26 Patient has correct armband on for positive identification. Placed in gown. Bed in low ld1 position. Call light in reach. Side rails up X2. Pulse ox on. NIBP on. Door closed. Noise minimized. Warm blanket given. 13:26 No provider procedures requiring assistance completed. Inserted saline lock: 20 gauge ld1 in left antecubital area, using aseptic technique. Blood collected. 14:38 CT Abd/Pelvis - IV Contrast Only In Process Unspecified. EDMS 15:21 Matt Marie MD is Hospitalizing Provider. [facility] 20:36 Patient admitted, IV remains in place. ld1 Administered Medications: 13:26 Drug: Dilaudid (HYDROmorphone) 1 mg Route: IVP; Site: left antecubital; ld1 13:26 Follow up: Response: No adverse reaction ld1 14:52 Drug: NS 0.9% 1000 ml Route: IV; Rate: 1 bolus; Site: right antecubital; ld1 15:25 Drug: Valium (diazepam) 5 mg Route: PO; ld1 15:29 Drug: Zosyn (piperacillin-tazobactam) 3.375 grams Route: IVPB; Infused Over: 60 mins; ld1 Site: left antecubital; Outcome: 15:22 Decision to Hospitalize by Provider. [facility] 20:36 Admitted to Med/surg accompanied by tech, via wheelchair, room 216, with chart, Report ld1 called to COREY Silva 20:36 Condition: stable 20:36 Instructed on the need for admit. 20:36 Patient left the ED. ld1 Signatures: Dispatcher [employer] EDMS Torsten Carson PA PA jmm Rivera, Mary mr Garcia, Neris, RN RN vg1 Marta Moore RN RN ld1
--- NOTE | 2021-07-25 15:23 | EDPHYS ---
Physician Documentation [facility] Name: Bj Carpio Age: 66 yrs Sex: Male : 1955 Arrival Date: 07/25/2021 Time: 12:17 Bed 25 Private MD: Timmy Alfred ED Physician Alberto Spencer HPI: 07/25 13:03 This 66 yrs old Male presents to ER via Ambulatory with complaints of Post jmm Surgical Pain. 13:03 The patient presents with abdominal pain. Onset: The symptoms/episode began/occurred jmm gradually, 7 day(s) ago. The symptoms do not radiate. Associated signs and symptoms: Pertinent negatives: diarrhea, fever, vomiting. The symptoms are described as achy, sharp. Modifying factors: The symptoms are alleviated by nothing, the symptoms are aggravated by nothing. This is a 66-year-old male with history of diabetes mellitus, hyperlipidemia, hypertension the presents emerged department 7 days status post laparoscopic cholecystectomy. Patient states he has had ongoing pain since his surgery but today the pain has intensified.. Historical: - Allergies: 12:53 No Known Allergies; vg1 - Home Meds: 12:53 atorvastatin 20 mg Oral tab 1 tab once daily [Active]; Fish Oil 1,000 mg (120 mg-180 vg1 mg) Oral cap four times a day [Active]; glimepiride 4 mg Oral tab 2 tabs once daily [Active]; Humalog U-100 Insulin 100 unit/mL Sub-Q crtg 5 units three times a day [Active]; labetalol 100 mg Oral tab 1 tab 2 times per day [Active]; metformin 1,000 mg Oral tab 1 tab 2 times per day [Active]; - PMHx: 12:53 Diabetes - IDDM; Diabetes - NIDDM; High Cholesterol; Hypertension; vg1 - PSHx: 12:53 Cholecystectomy; vg1 - Immunization history:: Adult Immunizations up to date, Client reports receiving the 2nd dose of the Covid vaccine. - Social history:: Smoking status: Patient reports the use of cigarette tobacco products, cigars, once a month. ROS: 13:03 Constitutional: Negative for fever, chills, and weight loss, Cardiovascular: Negative jm for chest pain, palpitations, and edema, Respiratory: Negative for shortness of breath, cough, wheezing, and pleuritic chest pain. 13:03 Abdomen/GI: Positive for abdominal pain. 13:03 All other systems are negative. Exam: 13:03 Constitutional: This is a well developed, well nourished patient who is awake, alert, jmm and in no acute distress. Head/Face: atraumatic. Eyes: EOMI, no conjunctival erythema appreciated ENT: Moist Mucus Membranes Neck: Trachea midline, Supple Chest/axilla: Normal chest wall appearance and motion. Cardiovascular: Regular rate and rhythm. No edema appreciated Respiratory: Normal respirations, no respiratory distress appreciated 13:03 Skin: General appearance color normal MS/ Extremity: Moves all extremities, no obvious deformities appreciated, no edema noted to the lower extremities Neuro: Awake and alert, normal gait Psych: Behavior is normal, Mood is normal, Patient is cooperative and pleasant 13:03 Abdomen/GI: Inspection: distension, obese Bowel sounds: normal, Palpation: soft, mild abdominal tenderness, in the epigastric area, right upper quadrant and left upper quadrant. Vital Signs: 12:44 BP 158 / 79; Pulse 84; Resp 20; Temp 98.9(O); Pulse Ox 97% ; Weight 113.4 kg; Height 6 vg1 ft. 0 in. (182.88 cm); Pain 3/10; 13:26 BP 152 / 77; Pulse 80; Resp 18; Pulse Ox 98% on R/A; Pain 8/10; ld1 15:03 BP 149 / 76; Pulse 82; Resp 18; Pulse Ox 97% on R/A; ld1 17:03 BP 134 / 70; Pulse 64; Resp 18; Pulse Ox 97% on R/A; ld1 18:31 BP 136 / 75; Pulse 79; Resp 18; Pulse Ox 95% on R/A; ld1 12:44 Body Mass Index 33.91 (113.40 kg, 182.88 cm) vg1 MDM: 13:03 Patient medically screened. alpa 15:21 Data reviewed: vital signs, nurses notes. Counseling: I had a detailed discussion with jmrei the patient and/or guardian regarding: the historical points, exam findings, and any diagnostic results supporting the discharge/admit diagnosis, radiology results, the need for further work-up and treatment in the hospital. ED course: I discussed the patient with Dr. Tejada whom recommended hospitalizing the patient with IV antibiotics. Discussed the patient with Dr. Marie whom accepted the patient for admission. 07/25 13:13 Order name: Basic Metabolic Panel; Complete Time: 14:10 [facility] 07/25 13:13 Order name: CBC with Diff; Complete Time: 13:47 [facility] 07/25 13:13 Order name: Hepatic Function; Complete Time: 14:10 [facility] 07/25 13:13 Order name: Lipase; Complete Time: 14:10 [facility] 07/25 16:23 Order name: SARS-COV-2 RT PCR; Complete Time: 17:25 [facility] 07/25 13:13 Order name: IV Saline Lock; Complete Time: 13:26 [facility] 07/25 13:13 Order name: Labs collected and sent; Complete Time: 13:26 [facility] 07/25 13:13 Order name: CT Abd/Pelvis - IV Contrast Only; Complete Time: 15: [facility] 07/25 16:38 Order name: CONS Physician Consult EDMS Administered Medications: 13:26 Drug: Dilaudid (HYDROmorphone) 1 mg Route: IVP; Site: left antecubital; ld1 13:26 Follow up: Response: No adverse reaction ld1 14:52 Drug: NS 0.9% 1000 ml Route: IV; Rate: 1 bolus; Site: right antecubital; ld1 15:25 Drug: Valium (diazepam) 5 mg Route: PO; ld1 15:29 Drug: Zosyn (piperacillin-tazobactam) 3.375 grams Route: IVPB; Infused Over: 60 mins; ld1 Site: left antecubital; Disposition: 07/26 11:40 Co-signature as Attending Physician, Alberto Spencer MD I agree with the assessment and alpa plan of care. Disposition Summary: 07/25/21 15:22 Hospitalization Ordered Hospitalization Status: Inpatient Admission jm Provider: Matt Marie Condition: Stable jmm Problem: new jmm Symptoms: are unchanged jmm Bed/Room Type: Standard [facility] Location: Telemetry/MedSurg (Inpatient)(07/25/21 18:37) bd Room Assignment: 213(07/25/21 18:37) bd Diagnosis - Abdominal Pain - Post Operative jmm - Intrabdominal Abscess jmm Forms: - Medication Reconciliation Form jmm - SBAR form jmm Signatures: Dispatcher [employer] EDMS Jackie Dominguez bd Alberto Spencer MD MD cha Mickail, Joel, PA PA jmm Garcia, Victoria RN RN vg1 Marta Moore RN RN ld1 Corrections: (The following items were deleted from the chart) 07/25 16:23 15:25 CORONAVIRUS+BRZ ordered. EDWY EDMS 17:15 15:22 Telemetry/MedSurg (Inpatient) [facility] bd 17:15 15:22 [facility] bd 18:37 17:15 [facility] ER HOLD bd bd 18:37 17:15 ERHOLD- bd bd
[2021-07-25] MEDS ORDERED: NA CHLORIDE 0.9% 1,000 ML ONE (15:45)
[2021-07-25] MEDS ORDERED: DIAZEPAM 5 MG TABLET ONE (16:07)
[2021-07-25] MEDS ORDERED: PIPERACIL/TAZO 3.375 GM VIAL IV ONE (16:07)
[2021-07-25] MEDS ORDERED: NA CHLORIDE 0.9% 0 ML ONE (16:08)
[2021-07-25] MEDS ORDERED: NA CHLORIDE 0.9% 100 ML ONE (16:11)
[2021-07-25] MEDS ORDERED: ONDANSETRON 4 MG/2 ML VIAL IV PRN (16:34)
[2021-07-25] MEDS: Levofloxacin500mg IV 500 MG/100 ML BAG IV SCH (17:00)
[2021-07-25] MEDS: ENOXAPARIN 40 MG/0.4 ML SQ SCH (17:00)
[2021-07-25] MEDS: METRONIDAZOLE 500mg IVPB 500 MG/100 ML BAG IV SCH ×2 (18:00→23:05)
[2021-07-25] MEDS: Ringers Lactate 1,000 ML IV SCH (21:00)
[2021-07-25] MEDS: HYDROMORPHONE HCL 1 MG/ML INJ IV PRN (21:19)
[2021-07-25 21:21] VITALS: BMI 33.9
[2021-07-26] MEDS: HYDROMORPHONE HCL 1 MG/ML INJ IV PRN ×3 (00:52→13:06)
[2021-07-26] MEDS: Ringers Lactate 1,000 ML IV SCH ×2 (03:00→12:07)
[2021-07-26 03:58] LABS: Absolute Lymphocytes (CBC) 1.3 K/uL (0.7-4.9); Basophils % 0.8 % (0-1.3); Lymphocytes % 15.2 % (15.3-44.8); MPV 8.3 fL (7.6-11.3); Protime INR 1.09; RBC Red Blood Cell Count 3.54 M/uL (4.33-5.43)
[2021-07-26 04:10] LABS: Albumin 1.7 g/dL (3.4-5.0); Bilirubin Total 0.3 mg/dL (0.2-1.0); Magnesium 1.7 mg/dL (1.8-2.4); Phosphorus 3.4 mg/dL (2.5-4.9); Potassium 4.1 mmol/L (3.5-5.1); Protein, Total 6.2 g/dL (6.4-8.2)
[2021-07-26] MEDS: METRONIDAZOLE 500mg IVPB 500 MG/100 ML BAG IV SCH ×3 (04:50→17:02)
[2021-07-26] MEDS: ENOXAPARIN 40 MG/0.4 ML SQ SCH ×2 (08:00→08:06)
[2021-07-26] MEDS ORDERED: MAGNESIUM SULFATE 1 gm IVPB 1 GM/100 ML BAG IV ONE (09:00)
--- NOTE | 2021-07-26 11:12 | P.HP ---
Certification for Inpatient Patient admitted to: Inpatient With expected LOS: >2 Midnights Patient will require the following post-hospital care: None Practitioner: I am a practitioner with admitting privileges, knowledge of patient current condition, hospital course, and medical plan of care. Services: Services provided to patient in accordance with Admission requirements found in Title 42 Section 412.3 of the Code of Federal Regulations Patient History Date of Service: 07/25/21 History of Present Illness: Patient is a 66-year-old gentleman who came to the hospital with abdominal complaints. Patient also with a history of diabetes. Patient was having pain with no radiation. Patient said the pain was sharp. Patient recently had a laparoscopic cholecystectomy. Patient has been doing well until a couple of days ago. Pain was not improving so patient came back into the emergency room for further evaluation. It was felt patient may be having postsurgical pain. Allergies No Known Allergies Allergy (Unverified 07/18/21 06:00) Home Medications: Atorvastatin Calcium 20 mg PO BEDTIME 07/18/21 Cholecalciferol (Vitamin D3) [Vitamin D3] 5,000 unit PO DAILY 07/18/21 Glimepiride 4 mg PO BID 07/18/21 Insulin Detemir [Levemir] 32 units SQ DAILY 07/18/21 Insulin Lispro [Humalog Kwikpen U-100] 5 units SQ TID 07/18/21 Labetalol HCl 100 mg PO BID 07/18/21 [place]-3/Dha/Epa/Fish Oil [Fish Oil 1,000 mg Softgel] 4 mg PO BID 07/18/21 Ramipril [Altace] 10 mg PO BID 07/18/21 Semaglutide [Ozempic] 0.5 mg SQ EVERY 7TH DAY 07/18/21 Clopidogrel Bisulfate [Clopidogrel] 75 mg PO DAILY 07/20/21 Docusate [Colace Cap] 100 mg PO DAILY 30 Days #30 cap 07/21/21 Metformin HCl [Metformin ER Osmotic] 1,000 mg PO DAILY 10 Days #10 [email or web address] 07/21/21 - Past Medical/Surgical History Has patient received pneumonia vaccine in the past: Yes Diabetic: Yes -: HTN -: HLD -: DM -: leg surgery -: hernia repair Psychosocial/ Personal History: - Social History Smoking Status: Smoker current status UNK Alcohol use: Yes CD- Drugs: No Caffeine use: Yes Place of Residence: Home Physical Examination - Vital Signs Temperature: 98.1 F Blood Pressure: 170/80 Pulse: 75 Respirations: 18 Pulse Ox (%): 94 - Physical Exam General: Alert, In no apparent distress, Oriented x3 HEENT: Atraumatic, Normocephalic Neck: Supple, 2+ carotid pulse no bruit, JVD not distended, No Thyromegaly, No LAD Respiratory: Clear to auscultation bilaterally, Normal air movement Cardiovascular: Regular rate/rhythm, Normal S1 S2, No murmurs Gastrointestinal: Normal bowel sounds, Soft and benign, Non-distended Musculoskeletal: No clubbing, No swelling Integumentary: No rashes Neurological: Normal gait, Normal speech, Normal strength at 5/5 x4 extr, Sensation intact, Cranial nerves 3-12 intact - Studies Laboratory Data (last 24 hrs) 07/25/21 13:26: WBC 8.40, Hgb 10.9 L, Hct 33.1 L, Plt Count 260 D 07/25/21 13:26: Sodium 140, Potassium 4.3, BUN 28 H, Creatinine 1.22, Glucose 190 H, Total Bilirubin 0.3, AST 28, ALT 42, Alkaline Phosphatase 164 H, Lipase 920 H Assessment & Plan - Problems (Diagnosis) (1) S/P laparoscopic cholecystectomy Current Visit: Yes Status: Acute (2) HLD (hyperlipidemia) Current Visit: No Status: Chronic Qualifiers: Hyperlipidemia type: unspecified Qualified Code(s): E78.5 - Hyperlipidemia, unspecified (3) HTN (hypertension) Current Visit: No Status: Chronic Qualifiers: Hypertension type: primary hypertension Qualified Code(s): I10 - Essential (primary) hypertension (4) T2DM (type 2 diabetes mellitus) Current Visit: No Status: Chronic Qualifiers: Diabetes mellitus fci insulin use: unspecified supervisor intermediates insulin use status Diabetes mellitus complication status: without complication Qualified Code(s): E11.9 - Type 2 diabetes mellitus without complications - Plan 1. Continue with IV hydration 2. Continue with IV antibiotics 3. Continue with pain control 4. NPO 5. General surgery consultation; HIDA scan 6. Serial H&H, and we will monitor CBC, BMP, LFTs and lipase along with electrolytes. 7. GI and DVT prophylaxis Discharge Plan: Home Plan to discharge in: Greater than 2 days - Advance Directives Does patient have a Living Will: No Does patient have a Durable POA for Healthcare: No - Code Status/Comfort Care Code Status Assessed: Yes Code Status: Full Code Critical Care: No Time Spent Managing PTS Care (In Minutes): 45
[2021-07-26] MEDS ORDERED: HYDROMORPHONE HCL 1 MG/ML INJ IV PRN (13:00)
[2021-07-26] MEDS ORDERED: DIAZEPAM 5 MG TABLET PO ONE (13:01)
--- NOTE | 2021-07-26 13:17 | RAD REPORT ---
EXAM DESCRIPTION: NM - Hepatobiliary System Imagin - 07/26/2021 12:56 pm CLINICAL HISTORY: gallbladder removed, abnormal CT COMPARISON: Abdomen Pelvis W Contrast dated 07/25/2021; Abdomen Pelvis W Contrast dated TECHNIQUE: The patient was administered 6.1 mCi Tc99m Choletec. Imaging of the right upper quadrant was performed initially for up to 60 minutes. FINDINGS: Normal hepatic uptake and excretion with appropriate clearance of background blood pool ac tivity. Normal visualization of biliary and small bowel activity. Some stomach activity is seen along the left lobe of the liver. The patient has had prior cholecystectomy. No bile leak identified. IMPRESSION: No bile leak identified following cholecystectomy.
--- NOTE | 2021-07-26 13:17 | P.CNS ---
Date of Consult: 07/26/21 PC: Patient presented back to the emergency room, complaining of severe right upper quadrant abdominal pain, appear to go up into his shoulder with accompanying shortness of breath. HPC: Patient had laparoscopic cholecystectomy with normal intraoperative cholangiogram. Patient also was noted to have fatty liver, possible early cirrh osis at that time. Also had a STEWART drain in the postoperative day due to the depth of the liver bed, and the amount of inflammation around his gallbladder. PSHx: Gallbladder surgery last week PMHx: Unchanged Social Hx: Unchanged Sys R: No cough, wheeze, shortness of breath. No chest pain or palpitations. Denies any urinary complaints. O/E: Awake alert vital signs are stable HEENT: Nonicteric Chest: Air entry is equal bilaterally Abd: Mildly tympanic no guarding or rebound [place]: Intact Data: CT scan shows small collection in the gallbladder fossa with possible air- fluid levels. Impression: Patient has been having right upper quadrant abdominal pain, radiating to his back, and the presence of a CT scan with fluid in the gallbladder fossa. Plan: I will admit the patient, we will start him on some IV antibiotics, pain medicine, and order a HIDA scan.
[2021-07-26] MEDS: INSULIN LISPRO 100 UNIT/1 ML SQ SCH ×2 (14:00→20:30)
[2021-07-26] MEDS: ramipriL 5 MG CAP PO SCH (15:01)
[2021-07-26] MEDS: Levofloxacin500mg IV 500 MG/100 ML BAG IV SCH (16:07)
--- NOTE | 2021-07-26 17:17 | P.PN ---
Subjective Date of Service: 07/26/21 HIDA scan pending. Patient's clinical symptoms are stable. Continue monitoring for nausea and vomiting. Pain with deep inspiration. Pleuritic chest pain. Review of Systems 10-point ROS is otherwise unremarkable Physical Examination - Vital Signs Temperature: 98.4 F Blood Pressure: 175/77 Pulse: 78 Respirations: 18 Pulse Ox (%): 95 - Physical Exam General: Alert, In no apparent distress, Oriented x3 HEENT: Atraumatic, PERRLA, EOMI Neck: Supple, JVD not distended Respiratory: Diminished, Expiratory wheezes Cardiovascular: Regular rate/rhythm, Normal S1 S2, No murmurs Gastrointestinal: Normal bowel sounds, Soft and benign, Non-distended, No tenderness Musculoskeletal: No clubbing, No swelling, No tenderness Integumentary: No rashes Neurological: Normal speech, Normal tone, Normal affect Lymphatics: No axilla or inguinal lymphadenopathy - Studies Medications List Reviewed: Yes Assessment & Plan - Problems (Diagnosis) (1) Abdominal pain Current Visit: Yes Status: Acute (2) S/P laparoscopic cholecystectomy Current Visit: Yes Status: Acute (3) HLD (hyperlipidemia) Current Visit: No Status: Chronic Qualifiers: Hyperlipidemia type: unspecified Qualified Code(s): E78.5 - Hyperlipidemia, unspecified (4) HTN (hypertension) Current Visit: No Status: Chronic Qualifiers: Hypertension type: primary hypertension Qualified Code(s): I10 - Essential (primary) hypertension (5) T2DM (type 2 diabetes mellitus) Current Visit: No Status: Chronic Qualifiers: Diabetes mellitus fdc insulin use: unspecified medical terminologist insulin use status Diabetes mellitus complication status: without complication Qualified Code(s): E11.9 - Type 2 diabetes mellitus without complications - Plan continue with plan of care as mentioned below: 1. Continue with IV hydration 2. Continue with IV antibiotics 3. Continue with pain control 4. NPO 5. General surgery consultation; HIDA scan pending 6. Serial H&H, and we will monitor CBC, BMP, LFTs and lipase along with electrolytes. 7. CT PE protocol in a.m. for pleuritic chest pain 8. GI and DVT prophylaxis Discharge Plan: Home Plan to discharge in: Greater than 2 days - Advance Directives Does patient have a Living Will: No Does patient have a Durable POA for Healthcare: No - Code Status/Comfort Care Code Status: Full Code Critical Care: No Time Spent Managing PTS Care (In Minutes): 35
[2021-07-26] MEDS: DOCOSAHEXANOIC AC/EPA 1000 MG PO SCH (20:28)
[2021-07-26] MEDS: GLIMEPIRIDE 2 MG TABLET PO SCH (20:28)
[2021-07-26] MEDS: LABETALOL HCL 100 MG TAB PO SCH (20:29)
[2021-07-26] MEDS: ACETAMINOPHEN 500 MG TAB PO PRN (20:29)
[2021-07-26] MEDS ORDERED: ATORVASTATIN 20 MG TAB PO SCH (21:00)
[2021-07-27] MEDS: METRONIDAZOLE 500mg IVPB 500 MG/100 ML BAG IV SCH ×3 (00:01→12:39)
[2021-07-27] MEDS: Ringers Lactate 1,000 ML IV SCH ×2 (03:22→09:00)
[2021-07-27] MEDS: ACETAMINOPHEN 500 MG TAB PO PRN (05:44)
[2021-07-27 05:48] LABS: Basophils % 0.6 % (0-1.3); Lymphocytes % 13.2 % (15.3-44.8); MPV 7.9 fL (7.6-11.3); RBC Red Blood Cell Count 3.67 M/uL (4.33-5.43)
[2021-07-27 06:03] LABS: Albumin 1.8 g/dL (3.4-5.0); Bilirubin Total 0.3 mg/dL (0.2-1.0); Magnesium 1.9 mg/dL (1.8-2.4); Protein, Total 6.5 g/dL (6.4-8.2)
--- NOTE | 2021-07-27 08:01 | RAD REPORT ---
EXAM DESCRIPTION: CT - Chest For Pe Angio - 07/27/2021 7:21 am CLINICAL HISTORY: Chest pain COMPARISON: November 2020 TECHNIQUE: Dynamically enhanced axial 3 mm thick images of the chest were obtained during administra tion of <100> mL Isovue 370 IV contrast. Coronal and oblique reconstruction images were generated and reviewed. Exam utilizes a protocol for optimal evaluation of pulmonary arterial tree. Maximum intensity projections 3D imaging was utilized All CT scans are performed using dose optimization technique as appropriate and may include automated exposure control or mA/KV adjustment according to patient size. FINDINGS: A pulmonary embolus is not seen. A thoracic aortic aneurysm is not noted. Small right pleural effusion. A pericardial effusion is not seen. A lung consolidation is not present. Old rib fractures. A couple of air bubbles in the gallbladder fossa IMPRESSION: Negative for a pulmonary embolism. Small right pleural effusion
[2021-07-27] MEDS ORDERED: METFORMIN ER 500 MG TAB PO SCH (09:00)
[2021-07-27] MEDS ORDERED: VITAMIN D 5,000 UNIT CAP PO SCH (09:00)
[2021-07-27] MEDS ORDERED: CLOPIDOGREL 75 MG TABLET PO SCH (09:00)
[2021-07-27] MEDS ORDERED: INSULIN GLARGINE 100 UNITS/ML SQ SCH ×2 (09:00)
[2021-07-27] MEDS ORDERED: DOCUSATE NA 100 MG CAP PO SCH (09:00)
[2021-07-27] MEDS: ENOXAPARIN 40 MG/0.4 ML SQ SCH (09:10)
[2021-07-27] MEDS: ramipriL 5 MG CAP PO SCH (09:11)
[2021-07-27] MEDS: DOCOSAHEXANOIC AC/EPA 1000 MG PO SCH (09:11)
[2021-07-27] MEDS: GLIMEPIRIDE 2 MG TABLET PO SCH (09:12)
[2021-07-27] MEDS: LABETALOL HCL 100 MG TAB PO SCH (09:12)
[2021-07-27] MEDS: INSULIN LISPRO 100 UNIT/1 ML SQ SCH (09:14)
[2021-07-27 09:25] VITALS: TEMP 97.8
[2021-07-27] MEDS ORDERED: HYDROCORTISONE SUC 100 MG INJ IV ONE (11:15)
[2021-07-27] MEDS ORDERED: HYDRALAZINE HCL 20 MG/ML VIAL IV ONE (11:15)
[2021-07-27 11:47] VITALS: O2SAT 95
[2021-07-27 12:58] VITALS: BP 158/56
[2021-08-02] MEDS ORDERED: HOME MED 1 EA UNK (Semaglutide [Ozempic] 0.25 MG/0.2 ML Pen.Injctr) SQ SCH (09:00)
== END 2021-07-27 14:00 | disposition home health service (06) | DRG 948 ==
LOC: ER 12:14 → ERHOLD 16:57 → 2ND 20:32
PROVIDERS: ADMIT Hospitalist; ATTEND Hospitalist
DX: G89.18 Other acute postprocedural pain (principal); T81.43XA Infection following a procedure, organ and space surgical site, initial encounter; E11.9 Type 2 diabetes mellitus without complications; F17.210 Nicotine dependence, cigarettes, uncomplicated; I10 Essential (primary) hypertension; E78.5 Hyperlipidemia, unspecified; Z90.49 Acquired absence of other specified parts of digestive tract; Z79.4 Long term (current) use of insulin; Z79.84 Long term (current) use of oral hypoglycemic drugs; Z79.899 Other long term (current) drug therapy; Z79.01 Long term (current) use of anticoagulants; Z20.822 Contact with and (suspected) exposure to COVID-19
CPT/HCPCS: 36415; 71275; 74177; 78226; 80048; 80053; 80076; 82947; 83036; 83690; 83735; 84100; 85025; 85610; 85730; 94010; 96374; 96375; 99285; A9537; J0360; J1170; J1650; J1720; J1815; J2543; J3475; J7030; J7050; J7120; Q9967; U0003

== ENCOUNTER 2024-09-06 06:50 | Emergency (ER) | payer OTHER ==
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
[2024-09-06 08:46] LABS: Hematocrit 30.7 % (39.6-49.0); Hemoglobin 9.9 g/dL (13.6-17.9); MCH 29.6 pg (27.0-35.0); MCHC 32.2 g/dL (32.0-36.0); MCV 91.8 fL (80-100); MPV 10.4 fL (7.6-11.3); Platelets 117 thou/uL (152-406); RBC Red Blood Cell Count 3.34 M/uL (4.33-5.43); Red Cell Distribution Width 15.1 % (12.1-15.2)
--- NOTE | 2024-09-06 08:48 | RAD REPORT ---
EXAMINATION: TWO VIEW CHEST XR CLINICAL INDICATION: COUGH TECHNIQUE: 2 views of the chest was performed. COMPARISON: 07/27/2021 FINDINGS: Interstitial prominence bilaterally could indicate viral infection or chronic bronchitis. Mild inters titial pulmonary edema is also possible. The heart is upper limit of normal in size. No displaced fractures evident.
[2024-09-06 09:01] LABS: SARS-CoV-2 Antigen CONTROL BLUE LINE VIS/BG OK; SARS-CoV-2 Antigen Rapid Res Negative (Negative)
[2024-09-06] MEDS ORDERED: AZITHROMYCIN 250 MG TAB ONE (09:09)
[2024-09-06] MEDS ORDERED: ACETAMINOPHEN 500 MG TAB ONE (09:09)
[2024-09-06] MEDS ORDERED: BENZONATATE 100 MG CAP PO ONE (09:10)
[2024-09-06] MEDS ORDERED: NA CHLORIDE 0.9% 50 ML ONE (09:49)
[2024-09-06] MEDS ORDERED: CEFTRIAXONE 1000 MG/VIAL ONE (09:49)
--- NOTE | 2024-09-06 10:08 | ER ---
Nurse's Notes [facility] Name: Bj Carpio Age: 69 yrs Sex: Male : 1955 Arrival Date: 09/06/2024 Time: 06:50 Bed 18 Private MD: Diagnosis: Cough;Acute interstitial pneumonitis Presentation: 09/06 07:17 Chief complaint: Patient states: cough started Sunday , last night it got worse , iw hurts his ribs when he coughs, feels extremely weak, body aches, no fever. Coronavirus screen: Client presents with at least one sign or symptom that may indicate coronavirus-19. Ebola Screen: No symptoms or risks identified at this time. Initial Sepsis Screen: Does the patient meet any 2 criteria? No. Patient's initial sepsis screen is negative. Does the patient have a suspected source of infection? No. Patient's initial sepsis screen is negative. Risk Assessment: Do you want to hurt yourself or someone else? Patient reports no desire to harm self or others. Onset of symptoms was September 03, 2024. 07:17 Method Of Arrival: Wheelchair iw 07:17 Acuity: MANUELA 3 iw Historical: - Allergies: 07:19 No Known Allergies; iw - PMHx: 07:19 Diabetes - IDDM; Diabetes - NIDDM; High Cholesterol; Hypertension; iw - PSHx: 07:19 Cholecystectomy; iw - Immunization history:: Adult Immunizations not up to date. - Infectious Disease History:: Denies. - Social history:: Smoking status: Patient denies any tobacco usage or history of. Screenin:14 [facility] ED Fall Risk Assessment (Adult) History of falling in the last 3 months, db including since admission No falls in past 3 months (0 pts) Confusion or Disorientation No (0 pts) Intoxicated or Sedated No (0 pts) Impaired Gait No (0 pts) Mobility Assist Device Used No (0 pt) Altered Elimination No (0 pt) Score/Fall Risk Level 0 - 2 = Low Risk Oriented to surroundings, Maintained a safe environment. Abuse screen: Denies threats or abuse. Denies injuries from another. Nutritional screening: No deficits noted. Tuberculosis screening: No symptoms or risk factors identified. Assessment: 08:25 General: Appears in no apparent distress. comfortable, Behavior is calm, cooperative. db Pain: Denies pain. Neuro: Level of Consciousness is awake, alert, obeys commands, Oriented to person, place, time, situation, Reports dizziness. 08:26 Reassessment: PATIENT PROVIDED CRACKERS. REPORTS TAKING INSULIN AND NOT EATING. db 08:37 Reassessment: Patient appears in no apparent distress at this time. Patient and/or db family updated on plan of care and expected duration. Pain level reassessed. Patient is alert, oriented x 3, equal unlabored respirations, skin warm/dry/pink. 09:14 Reassessment: Patient appears in no apparent distress at this time. Patient and/or db family updated on plan of care and expected duration. Pain level reassessed. Patient is alert, oriented x 3, equal unlabored respirations, skin warm/dry/pink. Respiratory: Reports cough that is Airway is patent Respiratory effort is even, unlabored, Respiratory pattern is regular, symmetrical. 09:54 Reassessment: Patient appears in no apparent distress at this time. Patient and/or db family updated on plan of care and expected duration. Pain level reassessed. Patient is alert, oriented x 3, equal unlabored respirations, skin warm/dry/pink. 10:16 Reassessment: Patient appears in no apparent distress at this time. Patient and/or db family updated on plan of care and expected duration. Pain level reassessed. Patient is alert, oriented x 3, equal unlabored respirations, skin warm/dry/pink. Vital Signs: 07:17 BP 101 / 49; Pulse 74; Resp 18; Temp 98.1; Pulse Ox 97% ; Weight 118.39 kg; Height 6 iw ft. 0 in. ; Pain 0/10; 09:08 BP 116 / 54; Pulse 76; Resp 16; Pulse Ox 94% on R/A; db 09:30 BP 123 / 51; Pulse 97; Resp 18; Pulse Ox 97% ; db 10:00 BP 106 / 50; Pulse 74; Resp 16; Pulse Ox 95% on R/A; db 07:17 Body Mass Index 35.40 (118.39 kg, 182.88 cm) iw 07:17 Pain Scale: Adult iw ED Course: 06:57 Patient arrived in ED. ra3 07:19 Triage completed. iw 07:19 Arm band placed on. iw 07:50 Addie Lewis, RN is Primary Nurse. db 07:53 Warm blanket given. Pillow given. Verbal reassurance given. am7 07:59 Tejas King MD is Attending Physician. bo1 08:33 Initial lab(s) drawn, by me, sent to lab. Inserted saline lock: 22 gauge in right db antecubital area, using aseptic technique. Blood collected. Flushed with 10 mL NS. 08:36 SARS-COV-2 Antigen Rapid Sent. db 08:36 RSV Sent. db 08:36 Flu Sent. db 08:36 CBC w/o diff Sent. db 08:37 Patient moved to radiology. db 08:41 Chest Pa And Lat (2 Views) XRAY In Process Unspecified. EDMS 09:14 Patient has correct armband on for positive identification. Bed in low position. Call db light in reach. Side rails up X 1. Pulse ox on. NIBP on. 10:16 Provided Education on: DISCHARGE AND FOLLOWUP. db 10:16 No provider procedures requiring assistance completed. IV discontinued, intact, db bleeding controlled, No redness/swelling at site. Administered Medications: 09:10 Drug: AZITHromycin PO 500 mg PO once Route: PO; db 10:15 Follow up: Response: No adverse reaction db 09:11 Drug: Acetaminophen PO 1000 mg PO once Route: PO; db 10:15 Follow up: Response: No adverse reaction db 09:13 Drug: Tessalon Perle PO 200 mg PO once Route: PO; db 10:15 Follow up: Response: No adverse reaction db 09:50 Drug: Rocephin IV 1 grams IV at bolus once; Given slow IV push per pharmacy db instructions Route: IV; Rate: bolus; Site: right antecubital; 10:15 Follow up: Response: No adverse reaction; IV Status: Completed infusion; IV Intake: 50mldb Medication: 10:16 VIS not applicable for this client. db Point of Care Testing: Blood Glucose: 08:26 Blood Glucose: 92 mg/dL; db Ranges: Intake: 10:15 IV: 50ml; Total: 50ml. db Outcome: 10:07 Discharge ordered by . bo1 10:16 Discharged to home via wheelchair, with family, db 10:16 Condition: stable 10:16 Discharge instructions given to patient, family, Instructed on discharge instructions, follow up and referral plans. Prescriptions given X 2, 10:18 Patient left the ED. db Signatures: Dispatcher [employer] Andreea Burns, RN Addie Rico RN RN db Alva, Ruby ra3 Tejas King MD MD bo1 Teresa Avelar am7
--- NOTE | 2024-09-06 10:08 | EDPHYS ---
Physician Documentation [facility] Name: Bj Carpio Age: 69 yrs Sex: Male : 1955 Arrival Date: 09/06/2024 Time: 06:50 Bed 18 Private MD: ED Physician Tejas King HPI: 09/06 08:03 This 69 yrs old Male presents to ER via Wheelchair with complaints of Weakness bo1 - Cough. 08:03 Onset: The symptoms/episode began/occurred acutely, last night. Associated signs and bo1 symptoms: Pertinent positives: Feels "knocked down and ill". Severity of symptoms: At their worst the symptoms were moderate. Current symptoms: "body aches all over, feels hot, took Marilyn Shayy plus". Historical: - Allergies: 07:19 No Known Allergies; iw - PMHx: 07:19 Diabetes - IDDM; Diabetes - NIDDM; High Cholesterol; Hypertension; iw - PSHx: 07:19 Cholecystectomy; iw - Immunization history:: Adult Immunizations not up to date. - Infectious Disease History:: Denies. - Social history:: Smoking status: Patient denies any tobacco usage or history of. ROS: 08:04 Constitutional: Negative for chills bo1 08:04 Respiratory: Positive for cough, 08:05 Cardiovascular: Positive for chest pain, with cough, Rib pains, bo1 Vital Signs: 07:17 BP 101 / 49; Pulse 74; Resp 18; Temp 98.1; Pulse Ox 97% ; Weight 118.39 kg; Height 6 iw ft. 0 in. ; Pain 0/10; 09:08 BP 116 / 54; Pulse 76; Resp 16; Pulse Ox 94% on R/A; db 09:30 BP 123 / 51; Pulse 97; Resp 18; Pulse Ox 97% ; db 10:00 BP 106 / 50; Pulse 74; Resp 16; Pulse Ox 95% on R/A; db 07:17 Body Mass Index 35.40 (118.39 kg, 182.88 cm) iw 07:17 Pain Scale: Adult iw MDM: 07:59 Medical Screening Exam initiated bo1 09:32 Data reviewed: vital signs, lab test result(s), radiologic studies, plain films. ED bo1 course: Probable early pneumonia vs bronchitis. 09:51 ED course: Discussed with pt and family, will treat as early pneumonia, trial as OP. bo1 Close F/U.. 09/06 08:05 Order name: CBC w/o diff; Complete Time: 08:53 bo1 09/06 08:05 Order name: Flu; Complete Time: 09:31 bo1 09/06 08:05 Order name: RSV; Complete Time: 09:31 bo1 09/06 08:06 Order name: SARS-COV-2 Antigen Rapid; Complete Time: 09:31 bo1 09/06 08:38 Order name: Glucose, Ancillary Testing; Complete Time: 08:39 EDMS 09/06 08:06 Order name: Chest Pa And Lat (2 Views) XRAY; Complete Time: 08:53 bo1 Administered Medications: 09:10 Drug: AZITHromycin PO 500 mg PO once Route: PO; db 10:15 Follow up: Response: No adverse reaction db 09:11 Drug: Acetaminophen PO 1000 mg PO once Route: PO; db 10:15 Follow up: Response: No adverse reaction db 09:13 Drug: Tessalon Perle PO 200 mg PO once Route: PO; db 10:15 Follow up: Response: No adverse reaction db 09:50 Drug: Rocephin IV 1 grams IV at bolus once; Given slow IV push per pharmacy db instructions Route: IV; Rate: bolus; Site: right antecubital; 10:15 Follow up: Response: No adverse reaction; IV Status: Completed infusion; IV Intake: [id number] Point of Care Testing: Blood Glucose: 08:26 Blood Glucose: 92 mg/dL; db Ranges: Critical Glucose Levels:Adult <50 mg/dl or >400 mg/dl <40 mg/dl or >180 mg/dl Disposition Summary: 09/06/24 10:07 Discharge Ordered Notes: Location: Home bo1 Problem: new bo1 Symptoms: are unchanged bo1 Condition: Stable bo1 Diagnosis - Cough bo1 - Acute interstitial pneumonitis bo1 Followup: bo1 - With: Private Physician - When: Upon discharge from the Emergency Department - Reason: Recheck today's complaints, Continuance of care Discharge Instructions: - Discharge Summary Sheet bo1 - Cough, Adult bo1 - Pneumonitis bo1 Forms: - Medication Reconciliation Form bo1 - Antibiotic Education bo1 - Prescription Opioid Use bo1 - Patient Portal Instructions bo1 - Leadership Thank You Letter bo1 Prescriptions: - azithromycin 500 mg Oral tablet - take 1 tablet ORAL route daily for 10 days; 10 tablet; Refills: 0, Product bo1 Selection Permitted - benzonatate 200 mg laryngotracheal capsule - take 1 capsule ORAL route 3 times per day as needed for cough; 40 capsule; bo1 Refills: 0, Product Selection Permitted Signatures: Dispatcher [employer] Andreea Burns RN RN iw Benton, Danielle, RN RN db Oei, Benjamin, MD MD bo1
[2024-09-06 10:24] VITALS: TEMP 98.1
[2024-09-06 10:29] VITALS: BP 106/50; O2SAT 95
== END 2024-09-06 10:18 | disposition home or self-care (01) ==
LOC: ER 06:50
DX: J84.114 Acute interstitial pneumonitis (principal); R53.1 Weakness; Z11.52 Encounter for screening for COVID-19; E11.9 Type 2 diabetes mellitus without complications; I10 Essential (primary) hypertension
CPT/HCPCS: 96365; 36415; 82947; 85027; 87807; 87804 ×2; 71046; 99285; 87811; J0696